=== PATIENT | male | born 1945 | race Caucasian/White ===

== ENCOUNTER 2017-06-21 10:53 | Emergency (ER) | payer OTHER ==
[~2017-06-21] VITALS: Ht 180.3 cm; Wt 95.0 kg
[~2017-06-21 10:53] MED LIST: COUM7.5T PO; DICL75 PO; GABA300C3 PO; GLUCTAB PO; GLYB1TAB51 PO; LANTUS2P SC; LISI-587 PO; PRAV40TA2 PO
[2017-06-21 10:55] VITALS: BP 146/75; PULSE 74; RESP 20; TEMP 98; O2SAT 97
--- NOTE | 2017-06-21 11:11 | PD ---
HPI Chief Complaint: Hip Injury Time Seen by Provider: 11:09 Travel History International Travel<30 days: No Contact w/Intl Traveler<30days: No Traveled to known affect area: No History of Present Illness HPI Patient comes in complaining of feelings of his right hip is dislocated. Patient states that this occurred shortly prior to arrival. Patient states that he bent his leg feeling a popping sensation in his right hip causes sharp shooting pain in his leg. Pain is worse with standing. Resting improves pain. Denies any trauma. PFSH Past Medical History High Cholesterol: Yes Diabetes: Yes Hypertension: Yes Past Surgical History Genitourinary Surgery: No Social History Alcohol Use: No Tobacco Use: No Substance Use: No Allergies-Medications (Allergen,Severity, Reaction): Uncoded Allergies: NO KNOWN DRUG ALLERGIES (Allergy, 09/11/13) Reported Meds & Prescriptions Reported Meds & Active Scripts Active Reported Tylenol (Acetaminophen) 325 Mg Tab 325 Mg PO Q6H PRN Pravastatin 40 Mg Tab 40 Mg PO DAILY Pravastatin Sodium 40 Mg Tab 40 Mg PO DAILY Lantus Inj (Insulin Glargine) 1,000 Unit/10 Ml Vial 22 Units SQ HS Metformin (Metformin HCl) 500 Mg Tab 500 Mg PO BIDPC With meals Review of Systems Except as stated in HPI: all other systems reviewed are Neg Physical Exam Narrative GENERAL: Well-developed, overly nourished, in no acute distress, and non-ill appearing. SKIN: Focused skin assessment warm and dry. HEAD: Atraumatic. Normocephalic. EYES: Pupils equal and round. EOMI. No scleral icterus. No injection or drainage. ENT: No nasal bleeding or discharge. Mucous membranes pink and moist. NECK: Trachea midline. Supple. No nuclear rigidity. RESPIRATORY: No accessory muscle use. No respiratory distress. MUSCULOSKELETAL: No obvious deformities. No clubbing. No cyanosis. No edema. Decreased range of motion right hip secondary to pain. Neurovascular intact distally. NEUROLOGICAL: Awake and alert. No obvious cranial nerve deficits. Motor grossly within normal limits. Normal speech. PSYCHIATRIC: Appropriate mood and affect; insight and judgment normal. Data Data Last Documented VS Vital Signs Date Time Temp Pulse Resp B/P (MAP) Pulse Ox O2 Delivery O2 Flow Rate FiO2 06/21/17 10:55 98.0 74 20 146/75 (98) 97 Room Air Orders Orders Hip, Uni(Ap&Lat) W Ap Pelvis (06/21/17 ) MDM Medical Decision Making Medical Screen Exam Complete: Yes Emergency Medical Condition: Yes Differential Diagnosis Fracture, dislocation, strain, contusion, other Narrative Course Patient was seen and examined. Initial radiological studies were ordered. Patient was transferred to the medical [facility]. Patient signed out to Dr. Fish, please see her documentation for final diagnosis and disposition. Dillan Mejia Jun 21, 2017 11:11
[2017-06-21] MEDS ORDERED: LANTUS2P SQ (11:19)
[2017-06-21] MEDS ORDERED: METF500T PO (11:19)
[2017-06-21] MEDS ORDERED: PRAV40TA2 PO (11:20)
[2017-06-21] MEDS ORDERED: TYLE325T PO (11:22)
[2017-06-21] MEDS ORDERED: HYDROmorphone HCL PF 1 MG/ML VIAL IVS ONE (12:15)
[2017-06-21] MEDS ORDERED: ETOMIDATE 20 MG/10 ML VIAL IV PUSH ONE (12:15)
[2017-06-21] MEDS ORDERED: SODIUM CHLORIDE 0.9% FLUSH 10 ML FLUSH IVF PRN (12:15)
[2017-06-21] MEDS ORDERED: ONDANSETRON HCL 4 MG/2 ML VIAL IVP ONE (12:15)
[2017-06-21 12:36] LABS: AUTOMATED NEUTROPHIL # 4.6 TH/MM3 (1.8-7.7); BASOPHIL % 0.4 % (0.0-2.0); EOSINOPHIL # 0.2 TH/MM3 (0-0.4); EOSINOPHIL % 3.7 % (0.0-4.0); HEMATOCRIT 33.9 % (39.0-51.0); HEMO FLAGS DIFF FINAL; LYMPH % 17.2 % (9.0-44.0); LYMPHOCYTE # 1.1 TH/MM3 (1.0-4.8); MEAN CELL VOLUME 83.9 FL (80.0-100.0); MEAN CORPUSCULAR HEMOGLOBIN 28.1 PG (27.0-34.0); MEAN CORPUSCULAR HGB CONC 33.4 % (32.0-36.0); MONO % 7.5 % (0.0-8.0); NEUT % 71.2 % (16.0-70.0); PLATELET COUNT 289 TH/MM3 (150-450); RED BLOOD COUNT 4.04 MIL/MM3 (4.50-5.90); RED CELL DISTRIBUTION WIDTH 14.4 % (11.6-17.2); WHITE BLOOD COUNT 6.5 TH/MM3 (4.0-11.0)
[2017-06-21 12:45] LABS: APTT (PATIENT) 22.1 SEC (24.3-30.1); INTERNATIONAL NORMALIZED RATIO 0.9 RATIO; PROTHROMBIN TIME - PATIENT 10.2 SEC (9.8-11.6)
[2017-06-21 13:03] LABS: ALT (GPT) 23 U/L (12-78); ANION GAP 9 MEQ/L (5-15); AST (GOT) 11 U/L (15-37); BICARBONATE 26.5 MEQ/L (21.0-32.0); BLOOD UREA NITROGEN 19 MG/DL (7-18); CHLORIDE 94 MEQ/L (98-107); GLOMERULAR FILTRATION RATE 73 ML/MIN (>89); POTASSIUM 4.5 MEQ/L (3.5-5.1); SODIUM (NA) 129 MEQ/L (136-145)
[2017-06-21 13:06] LABS: ALKALINE PHOSPHATASE 84 U/L (45-117); TOTAL BILIRUBIN ADULT 0.3 MG/DL (0.2-1.0)
[2017-06-21 13:13] VITALS: BP 158/71; PULSE 76; RESP 21; O2SAT 94
[2017-06-21 14:07] VITALS: O2SAT 100
--- NOTE | 2017-06-21 14:38 | PD ---
Physical Exam Date Seen by Provider: Jun 21, 2017 Time Seen by Provider: 13:45 Narrative I, Dr. Fish, have reviewed the advance practice practitioner's documentation and am in agreement, met with the patient face to face, made the diagnosis, and the medical decision making was done by me. *My assessment and Findings: Patient seen and evaluated with PA, please see PA note for further details. Has history of right hip replacement, was bending down to put on his sock when he felt dislocation and pain at the right hip. He denies any other issues or injuries. GENERAL: Pleasant well-developed elderly white male patient currently mild distress. Awake and oriented 3. SKIN: Focused skin assessment warm/dry. HEAD: Atraumatic. Normocephalic. EYES: Pupils equal and round. No scleral icterus. No injection or drainage. ENT: No nasal bleeding or discharge. Mucous membranes pink and moist. NECK: Trachea midline. No JVD. CARDIOVASCULAR: Regular rate and rhythm. No murmur appreciated. RESPIRATORY: No accessory muscle use. Clear to auscultation. Breath sounds equal bilaterally. GASTROINTESTINAL: Abdomen soft, non-tender, nondistended. Hepatic and splenic margins not palpable. Pelvis: Stable, tender to palpation of the right hip and decreased range of motion secondary to pain. MUSCULOSKELETAL: No obvious deformities. No clubbing. No cyanosis. No edema. NEUROLOGICAL: Awake and alert. No obvious cranial nerve deficits. Motor grossly within normal limits. Normal speech. PSYCHIATRIC: Appropriate mood and affect; insight and judgment normal. Data Data Last Documented VS Vital Signs Date Time Temp Pulse Resp B/P (MAP) Pulse Ox O2 Delivery O2 Flow Rate FiO2 06/21/17 14:07 100 06/21/17 14:07 3.00 06/21/17 13:13 76 21 158/71 (100) Room Air 06/21/17 10:55 98.0 Orders Orders Hip, Uni(Ap&Lat) W Ap Pelvis (06/21/17 ) Complete Blood Count With Diff (06/21/17 12:08) Comprehensive Metabolic Panel (06/21/17 12:08) Prothrombin Time / Inr (Pt) (06/21/17 12:08) Act Partial Throm Time (Ptt) (06/21/17 12:08) Iv Access Insert/Monitor (06/21/17 12:08) Oximetry (06/21/17 12:08) Ecg Monitoring (06/21/17 12:08) Ondansetron Inj (Zofran Inj) (06/21/17 12:15) Sodium Chloride 0.9% Flush (Ns Flush) (06/21/17 12:15) Hydromorphone Pf Inj (Dilaudid Pf Inj) (06/21/17 12:15) Etomidate Inj (Amidate Inj) (06/21/17 12:15) Hip, Uni(Ap&Lat) Wo Ap Pelvis (06/21/17 14:13) Immobilizer Knee 20 Inch (06/21/17 ) Labs Laboratory Tests Test 06/21/17 12:10 White Blood Count 6.5 TH/MM3 Red Blood Count 4.04 MIL/MM3 Hemoglobin 11.3 GM/DL Hematocrit 33.9 % Mean Corpuscular Volume 83.9 FL Mean Corpuscular Hemoglobin 28.1 PG Mean Corpuscular Hemoglobin Concent 33.4 % Red Cell Distribution Width 14.4 % Platelet Count 289 TH/MM3 Mean Platelet Volume 6.8 FL Neutrophils (%) (Auto) 71.2 % Lymphocytes (%) (Auto) 17.2 % Monocytes (%) (Auto) 7.5 % Eosinophils (%) (Auto) 3.7 % Basophils (%) (Auto) 0.4 % Neutrophils # (Auto) 4.6 TH/MM3 Lymphocytes # (Auto) 1.1 TH/MM3 Monocytes # (Auto) 0.5 TH/MM3 Eosinophils # (Auto) 0.2 TH/MM3 Basophils # (Auto) 0.0 TH/MM3 CBC Comment DIFF FINAL Differential Comment Prothrombin Time 10.2 SEC Prothromb Time International Ratio 0.9 RATIO Activated Partial Thromboplast Time 22.1 SEC Blood Urea Nitrogen 19 MG/DL Creatinine 1.01 MG/DL Random Glucose 196 MG/DL Total Protein 7.0 GM/DL Albumin 4.3 GM/DL Calcium Level 8.8 MG/DL Alkaline Phosphatase 84 U/L Aspartate Amino Transf (AST/SGOT) 11 U/L Alanine Aminotransferase (ALT/SGPT) 23 U/L Total Bilirubin 0.3 MG/DL Sodium Level 129 MEQ/L Potassium Level 4.5 MEQ/L Chloride Level 94 MEQ/L Carbon Dioxide Level 26.5 MEQ/L Anion Gap 9 MEQ/L Estimat Glomerular Filtration Rate 73 ML/MIN [facility] Medical Record Reviewed: Yes Supervised Visit with LILIANA: Yes Narrative Course X-ray reveals right hip dislocation. Patient's hip was reduced under conscious sedation by me. Repeat x-ray was done which shows good alignment. However, it was noted that the greater trochanter and lesser trochanter may be fractured. This issue was discussed with Dr. Mathis and PA who took a look at the x-rays and feel that this is an old fracture, not related to current injury and that the patient can be released with follow-up to his orthopedics doctor and can bear weight without issues with a leg immobilizer and posterior hip precautions. Patient was observed until completely awake and released to follow -up with orthopedics. Return for any new issues as needed. The plan has discussed with him and he states understanding. Procedures Procedure Narrative After the risks and benefits were discussed the following procedure was performed: MODERATE SEDATION: The patient was placed on a ham rolling machine operator and pulse oximetry. An ambu bag and suction was immediately available at bedside. The patient was monitored by the nurse. Oxygen saturation, heart rate and blood pressure were monitored. Procedural sedation was acheived using 20 mg of etomidate. The patient was observed until awake and alert. Procedural Sedation time in attendance was 15 minutes. Right hip was reduced using the Captain Mariusz technique, hip had smooth flexion and extension and leg length was evaluated, pulses were present and equal after procedure. Patient tolerated procedure well. Postprocedural x-ray was done to evaluate alignment. Diagnosis Primary Impression: Hip dislocation, right Disposition: 01 DISCHARGE HOME Condition: Stable Massile Fish MD Jun 21, 2017 14:38
--- NOTE | 2017-06-21 14:47 | RADRPT ---
EXAM DATE/TIME: 06/21/2017 11:53 [facility] COMPARISON: No previous studies available for comparison. INDICATIONS : Hip pain from twisting. HX: revision total hip one month ago. MEDICAL HISTORY : Bilateral total hips SURGICAL HISTORY : Bilateral total hips ENCOUNTER: Initial ACUITY: 1 day PAIN SCORE: 10/10 LOCATION: Right hip. FINDINGS: Pelvis and dedicated view right hip demonstrate the femoral head on the right is disloc ated superiorly. There is a fracture of the greater trochanter. There is a long stem femoral compon ent. We do not see the distal part of the stem. There is extensive cystic change in the left acetabulum. The visualized sacrum is intact. CONCLUSION: Hip arthroplasty dislocated on the right with a questionable fracture of the greater trochanter. There may be an additional fracture of the lesser trochanter as well. The tip of the ar throplasty stem is not included. Alber Casarez MD on June 21, 2017 at 13:31 Board Certified Radiologist. This report was verified electronically.
--- NOTE | 2017-06-21 15:31 | RADRPT ---
EXAM DATE/TIME: 06/21/2017 14:26 [facility] COMPARISON: HIP RIGHT (AP&LAT 2/3VWS) W AP PELVIS, June 21, 2017, 11:53. INDICATIONS : Post reduction. MEDICAL HISTORY : Bilateral total hips. SURGICAL HISTORY : Bilateral total hips ENCOUNTER: Initial ACUITY: 1 day PAIN SCORE: 0/10 LOCATION: Right hip FINDINGS: There has been reduction of the femoral component of the right hip replacement which appears to be in good position. Erosive changes and extensive lucency surrounds the proximal portion of the femoral component. Fractures of the greater and lesser trochanters are likely. CONCLUSION: 1. Successful reduction of right hip dislocation with femoral component in good position in relation to the acetabular component. 2. Extensive erosive changes and lucency surrounding the femoral component with fractures involving t he lesser and greater trochanters of the right proximal femur. Dieter Lindsey MD on June 21, 2017 at 15:20 Board Certified Radiologist. This report was verified electronically.
== END 2017-06-21 16:47 | disposition home or self-care (01) ==
LOC: NEPE 10:53
DX: S73.004A Unspecified dislocation of right hip, initial encounter (principal); T84.020A Dislocation of internal right hip prosthesis, initial encounter; X50.1XXA Overexertion from prolonged static or awkward postures, initial encounter; Y92.009 Unspecified place in unspecified non-institutional (private) residence as the place of occurrence of the external cause; I10 Essential (primary) hypertension; E78.00 Pure hypercholesterolemia, unspecified; E11.9 Type 2 diabetes mellitus without complications; Z79.4 Long term (current) use of insulin
CPT/HCPCS: 27250; 73502; 80053; 85025; 85610; 85730; 96374; 96375; 99152; 99285; J1170; J2405; L1830

== ENCOUNTER 2017-06-22 08:21 | Inpatient (IN) | payer OTHER, MEDICARE ==
[~2017-06-22] VITALS: Ht 177.8 cm; Wt 89.7 kg
[2017-06-22] VITALS (13 sets, daily range): BP systolic 131–189; BP diastolic 67–83; PULSE 70–79; RESP 16–18; TEMP 96.8–98; O2SAT 97–100
[~2017-06-22 08:21] MED LIST changes: -COUM7.5T PO; -DICL75 PO; -GABA300C3 PO; -GLUCTAB PO; -GLYB1TAB51 PO; -LANTUS2P SC; +LANTUS2P SQ; -LISI-587 PO; +METF500T PO; +TYLE325T PO
[2017-06-22] MEDS ORDERED: SODIUM CHLOR 0.9% 1000 ML INJ 1,000 ML IV SCH (08:30)
[2017-06-22] MEDS ORDERED: PROPOFOL 200 MG/20 ML AMP IV ONE ×2 (08:30→10:15)
[2017-06-22] MEDS ORDERED: ONDANSETRON HCL 4 MG/2 ML VIAL IV PUSH ONE ×2 (08:30→12:00)
[2017-06-22] MEDS ORDERED: MORPHINE SULFATE 4 MG/ML INJ IV PUSH ONE ×2 (08:30→12:00)
--- NOTE | 2017-06-22 08:34 | PD ---
HPI Chief Complaint: hip pain Time Seen by Provider: 08:25 Travel History International Travel<30 days: No Contact w/Intl Traveler<30days: No Traveled to known affect area: No History of Present Illness HPI The patient is a 71-year-old male who presents to the emergency department via EMS for right hip pain. The patient states he had right hip surgery performed 2 months ago by his orthopedist, Dr. Gillis, in [place], [place]. The patient states he was seen in emergency department yesterday for right hip dislocation, had his hip reduced and was sent home in a knee immobilizer. The patient was doing well until he took the knee immobilizer off to use the restroom and then subsequently dislocated the right hip once again. He does complain of chronic numbness and tingling to lower cherries bilateral secondary to diabetes, but denies any acute numbness or tingling. He does state the pain is worse with movement, and alleviated at rest with this right hip flexed with a pillow underlying the right leg. He denies any head injury, neck pain, chest pain, shortness breath, nausea, vomiting, or abdominal pain. PFSH Past Medical History High Cholesterol: Yes Diabetes: Yes Hypertension: Yes Past Surgical History Genitourinary Surgery: No Other Surgery: Yes Social History Alcohol Use: No Tobacco Use: No Substance Use: No Allergies-Medications (Allergen,Severity, Reaction): Uncoded Allergies: NO KNOWN DRUG ALLERGIES (Allergy, 09/11/13) Reported Meds & Prescriptions Reported Meds & Active Scripts Active Reported Pravastatin 40 Mg Tab 40 Mg PO DAILY Lantus Inj (Insulin Glargine) 1,000 Unit/10 Ml Vial 22 Units SQ HS Metformin (Metformin HCl) 500 Mg Tab 500 Mg PO BIDPC With meals Review of Systems Except as stated in HPI: all other systems reviewed are Neg HENT: No: Headaches, Neck Pain Cardiovascular: No: Chest Pain or Discomfort Respiratory: No: Shortness of Breath Gastrointestinal: No: Nausea, Vomiting, Abdominal Pain Musculoskeletal: Positive: Limited ROM, Pain Neurologic: Positive: Sensory Disturbance (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 SKIN: Focused skin assessment warm/dry. HEAD: Atraumatic. Normocephalic. EYES: Pupils equal and round. No scleral icterus. No injection or drainage. NECK: Trachea midline. No JVD. CARDIOVASCULAR: Regular rate and rhythm. No murmur appreciated. RESPIRATORY: No accessory muscle use. Clear to auscultation. Breath sounds equal bilaterally. GASTROINTESTINAL: Abdomen soft, non-tender, nondistended. MUSCULOSKELETAL: The right hip is flexed, slightly externally rotated. Positive right dorsalis pedal pulse. Patient is able to move all 5 toes of the right foot. NEUROLOGICAL: Awake and alert. No obvious cranial nerve deficits. Motor grossly within normal limits. Normal speech. Sensation is intact to lateral, medial, dorsal aspect of the right foot. PSYCHIATRIC: Appropriate mood and affect; insight and judgment normal. Data Data Last Documented VS Vital Signs Date Time Temp Pulse Resp B/P (MAP) Pulse Ox O2 Delivery O2 Flow Rate FiO2 06/22/17 15:51 98.0 71 16 148/67 (94) 100 Room Air Orders Orders Morphine Inj (Morphine Inj) (06/22/17 08:30) Ondansetron Inj (Zofran Inj) (06/22/17 08:30) Propofol 200 Mg/20 Ml Inj (Diprivan 200 (06/22/17 08:30) Sodium Chlor 0.9% 1000 Ml Inj (Ns 1000 M (06/22/17 08:30) Hip, Uni(Ap&Lat) Wo Ap Pelvis (06/22/17 ) Hip, Ap Only Wo Ap Pelvis (06/22/17 ) Propofol 200 Mg/20 Ml Inj (Diprivan 200 (06/22/17 10:15) Hip, Ap Only Wo Ap Pelvis (06/22/17 ) Ct Hip W/O Contrast (06/22/17 ) Immobilizer Knee 20 Inch (06/22/17 ) NPO (06/22/17 11:31) Morphine Inj (Morphine Inj) (06/22/17 12:00) Ondansetron Inj (Zofran Inj) (06/22/17 12:00) Hydromorphone Pf Inj (Dilaudid Pf Inj) (06/22/17 13:45) Complete Blood Count With Diff (06/22/17 16:55) Basic Metabolic Panel (Bmp) (06/22/17 16:55) Act Partial Throm Time (Ptt) (06/22/17 16:55) Prothrombin Time / Inr (Pt) (06/22/17 16:55) Electrocardiogram (06/22/17 ) Admit To Inpatient (06/22/17 ) Vital Signs (Adult) Q4H (06/22/17 17:01) Activity Bed Rest (06/22/17 17:01) Sodium Chlor 0.9% 1000 Ml Inj (Ns 1000 M (06/22/17 17:01) Sodium Chloride 0.9% Flush (Ns Flush) (06/22/17 17:15) Sodium Chloride 0.9% Flush (Ns Flush) (06/22/17 21:00) Ondansetron Inj (Zofran Inj) (06/22/17 17:15) Comprehensive Metabolic Panel (06/23/17 06:00) Complete Blood Count With Diff (06/23/17 06:00) Enoxaparin Inj (Lovenox Inj) (06/22/17 17:15) Scd Bilateral/Knee High GURMEET.BID (06/22/17 17:01) Acetamin-Hydrocod 325-5 Mg ([place] 5-325 (06/22/17 17:15) Acetamin-Hydrocod 325-10 Mg ([place] 10-32 (06/22/17 17:15) Naloxone Inj (Narcan Inj) (06/22/17 17:15) Docusate Sodium-Senna (Kiki-Colace) (06/22/17 21:00) Inpatient Certification (06/22/17 ) Npo After Midnight W/ Po Meds (06/23/17 Breakfast) Admit Order (Ed Use Only) (06/22/17 17:00) Consult Orthopedic (06/22/17 ) (Hub Use Only)Inp Phy Cons/Ref (06/22/17 ) Diet Heart Healthy (06/22/17 Dinner) Heparin Inj (Heparin Inj) (06/22/17 21:00) Pravastatin (Pravachol) (06/23/17 09:00) Insulin Detemir Inj (Levemir Inj) (06/22/17 21:00) Bedside Glucose GURMEET.CSUGAR (06/22/17 17:27) Blood Glucose Goal (Criteria) (06/22/17 17:27) Hypoglycemia 70 Mg/Dl Or < (06/22/17 17:27) Notify Dr: Other (06/22/17 17:27) Dextrose 50% In Amisha (Vial) Inj (D50w (Vi (06/22/17 17:30) Glucagon Inj (Glucagon Inj) (06/22/17 17:30) Insulin Aspart Supplemtl Scale (Novolog (06/22/17 21:00) Primidone (Mysoline) (06/23/17 09:00) Labs Laboratory Tests Test 06/22/17 17:20 [facility] Medical Decision Making Medical Screen Exam Complete: Yes Emergency Medical Condition: Yes Medical Record Reviewed: Yes Interpretation(s) X-ray #1 of the right hip reveals superior dislocation of the unipolar total arthroplasty. There is osteophyte ptosis above the greater trochanter. Last Impressions Lower Extremity CT 06/22/17 0000 Signed Impressions: Service Date/Time: Thursday, June 22, 2017 11:12 - CONCLUSION: Dislocation as above. Dain Khan MD FACR Hip X-Ray 06/22/17 0000 Signed Impressions: Service Date/Time: Thursday, June 22, 2017 09:56 - CONCLUSION: Hip remains dislocated. Dain Khan MD FACR Hip X-Ray 06/22/17 0000 Signed Impressions: Service Date/Time: Thursday, June 22, 2017 09:21 - CONCLUSION: Dislocation as described above. Dain Khan MD FACR EKG reveals normal sinus rhythm with occasional supraventricular premature complexes. No ischemic changes noted. Differential Diagnosis Differential diagnosis includes right hip dislocation, right hip fracture, pelvic fracture, femur fracture, strain, sprain. Narrative Course IV was established, the patient was placed on cardiac telemetry monitoring and continuous pulse oximetry monitoring. The patient was administered morphine 4 mg intravenously, Zofran 4 mg intravenously, placed on maintenance IV fluids. X -ray the right hip was obtained. X-ray reveals a dislocated right hip. The patient was administeed propofol with respiratory therapy at bedside on end- tidal CO2 and O2 with proof technician and nursing staff at bedside. The patient was administered propofol 100 mg intravenously and reduction right hip was performed, there was an audible clunk, however, postreduction x-ray reveals that it was still posteriorly and superiorly dislocated. Therefore, patient was administered a second dose of propofol for reduction of the right hip dislocation. After the second attempt was another audible clunk, however, postreduction x-ray was reveals that the hip is still dislocated. Therefore, the on-call orthopedic surgeon was paged at 10:[address] An recommended a CT of the hip to evaluate if there was any entrapment. There is no visible entrapment. Multiple calls were placed back to the on- call orthopedic surgeon, Dr. An. 2 previous attempts at sedation were performed with propofol to the point where the patient had to be bagged via bag valve mask, therefore, third attempt was not attempted without orthopedics at bedside. I would have attempted a third reduction with conscious sedation if worse though would be at bedside and I could manage airway alone. Therefore, at 5 PM a call was placed to the medicine team, for 23 hour observation, patient will be kept nothing by mouth. I discussed the patient with Dr. An at 5:20 PM who states he will take the patient to the operating room in the morning as the patient may have soft tissue that is obstructing placement upon reduction. The patient was ordered a meal/diet, an order for nothing by mouth after midnight was placed. Procedures Procedure Narrative After the risks and benefits were discussed the following procedure was performed: MODERATE SEDATION: The patient was placed on a quality assurance monitor and pulse oximetry. An ambu bag and suction was immediately available at bedside. The patient was monitored by the nurse. Oxygen saturation, heart rate and blood pressure were monitored. Procedural sedation was acheived using propofol. The patient was observed until awake and alert. Procedural Sedation time in attendance was 35 minutes. Physician Communication Physician Communication A call was placed to [facility] for 23 hour observation. I discussed the patient with Dr. Lugo who agrees with 23 hour observation. Diagnosis Primary Impression: Recurrent dislocation, right hip Admitting Information Admitting Physician Requests: Observation Patient Instructions: General Instructions Condition: Stable Bharat Enriquez MD Jun 22, 2017 08:34
--- NOTE | 2017-06-22 09:45 | RADRPT ---
EXAM DATE/TIME: 06/22/2017 09:21 [facility] COMPARISON: HIP RIGHT (AP&LAT 2/3VWS) W AP PELVIS, June 21, 2017, 11:53. HIP RIGHT (AP&LAT 2/3VWS) WO AP PE LVIS, June 21, 2017, 14:26. INDICATIONS : Right hip pain while adjusting in chair. MEDICAL HISTORY : None. SURGICAL HISTORY : Rt hip surgery 2 months ago. Dislocation 06/21/17. Hx of lt hip surgery. ENCOUNTER: Initial ACUITY: 2 days PAIN SCORE: 10/10 LOCATION: Right Hip. FINDINGS: Superior dislocation of the unipolar total arthroplasty. There is osteophytosis about the greater tr ochanter. CONCLUSION: Dislocation as described above. Dain Khan MD FACR on June 22, 2017 at 9:43 Board Certified Radiologist. This report was verified electronically.
--- NOTE | 2017-06-22 10:14 | RADRPT ---
EXAM DATE/TIME: 06/22/2017 09:56 [facility] COMPARISON: No previous studies available for comparison. INDICATIONS : Post reduction right hip. MEDICAL HISTORY : Total right and left hips. SURGICAL HISTORY : Total right and left hips ENCOUNTER: Subsequent ACUITY: 2 days PAIN SCORE: 9/10 LOCATION: Right hip. CONCLUSION: Hip remains dislocated. Dain Khan MD FACR on June 22, 2017 at 10:12 Board Certified Radiologist. This report was verified electronically.
--- NOTE | 2017-06-22 10:57 | RADRPT ---
EXAM DATE/TIME: 06/22/2017 10:21 [facility] COMPARISON: HIP RIGHT AP ONLY WO AP PELVIS, June 22, 2017, 9:56. INDICATIONS : Post reduction 2nd attempt. MEDICAL HISTORY : None. ENCOUNTER: Subsequent ACUITY: 1 day PAIN SCORE: 6/10 LOCATION: Right hip FINDINGS: Hip remains dislocated. Dain Khan MD FACR on June 22, 2017 at 10:55 Board Certified Radiologist. This report was verified electronically.
--- NOTE | 2017-06-22 11:44 | RADRPT ---
EXAM DATE/TIME: 06/22/2017 11:12 [facility] COMPARISON: No previous studies available for comparison. INDICATIONS : Right hip dislocation. RADIATION DOSE: 60.11 CTDIvol (mGy) MEDICAL HISTORY : Hypertension. SURGICAL HISTORY : hip ENCOUNTER: Initial ACUITY: 1 day PAIN SCALE: 10/10 LOCATION: Right hip TECHNIQUE: Volumetric scanning of the hip was performed. Using automated exposure control and adjustment of the mA and/or kV according to patient size, radiation dose was kept as low as reasonably achievable to o btain optimal diagnostic quality images. DICOM format image data is available electronically for rev iew and comparison. FINDINGS: Extensive artifact is present because of the acetabular cup. Osteolysis in the greater trochanteric region. I don't see an etiology for why this will not relocate. CONCLUSION: Dislocation as above. Dain Khan MD FACR on June 22, 2017 at 11:30 Board Certified Radiologist. This report was verified electronically.
[2017-06-22] MEDS ORDERED: HYDROmorphone HCL PF 1 MG/ML VIAL IV PUSH ONE ×2 (13:45→17:45)
[2017-06-22] MEDS: SODIUM CHLOR 0.9% 1000 ML INJ 1,000 ML IV SCH (17:01)
[2017-06-22] MEDS ORDERED: ENOXAPARIN SODIUM 40 MG/0.4 ML SYRINGE SQ SCH (17:15)
[2017-06-22] MEDS ORDERED: ACETAMINOPHEN/HYDROcodone 325 MG/5 MG TAB PO PRN (17:15)
[2017-06-22] MEDS ORDERED: SODIUM CHLORIDE 0.9% FLUSH 10 ML FLUSH IV FLUSH PRN (17:15)
[2017-06-22] MEDS ORDERED: NALOXONE HCL 0.4 MG/ML AMP IV PUSH PRN (17:15)
[2017-06-22] MEDS ORDERED: ONDANSETRON HCL 4 MG/2 ML VIAL IVP PRN (17:15)
--- NOTE | 2017-06-22 17:17 | HHI.HP ---
[facility] Service [place] [facility] Primary Care Physician Unknown Admission Diagnosis recurrent right hip dislocation Diagnoses: Chief Complaint: Hip dislocation Travel History International Travel<30 Days: No Contact w/Intl Traveler <30 Da: No Traveled to Known Affected Are: No History of Present Illness Written by Louis Higginbotham, acting as scribe for Dr. Lugo on 06/22/17 at 17:16. 71-year-old male with a past medical history of HLD, HTN, essential tremor who presented for hip dislocation. The patient had a second right hip replacement done 2 months ago in [place]. He states that yesterday he was bending down to put his socks on, felt a pop, had excruciating pain in his right hip when he tried to bear weight on it. He came to the ED and they were able to sedate him and reduce the dislocation. He states today the same situation happened again when he bent over and felt his hip dislocate again. The hip was unable to be reduced with sedation in the ED. Patient was admitted for orthopedic consultation to reduce persistent hip dislocation. The patient states the pain was not relieved much with morphine but pain was well controlled with Dilaudid. He denies any decreased sensation in his leg. Review of Systems Except as stated in HPI: all other systems reviewed are Neg Past Family Social History Past Medical History Hyperlipidemia Diabetes mellitus Essential tremor Bilateral hip osteoarthritis Past Surgical History Right hip replacement 2 Left hip replacement 1 Reported Medications Reported Meds & Active Scripts Active Reported Pravastatin 40 Mg Tab 40 Mg PO DAILY Lantus Inj (Insulin Glargine) 1,000 Unit/10 Ml Vial 22 Units SQ HS Metformin (Metformin HCl) 500 Mg Tab 500 Mg PO BIDPC With meals Primidone 350 mg Allergies: Uncoded Allergies: NO KNOWN DRUG ALLERGIES (Allergy, 09/11/13) Active Ordered Medications Current Medications Medications (Trade) Dose Ordered Sig/Getachew Route Start Time Stop Time Status Last Admin Sodium Chloride 1,000 ml @ 100 mls/hr Q10H IV 06/22/17 08:30 06/22/17 08:39 Sodium Chloride 1,000 ml @ 83 mls/hr Q12H3M IV 06/22/17 17:01 UNV (NS Flush) 2 ml UNSCH PRN IV FLUSH 06/22/17 17:15 UNV (NS Flush) 2 ml BID IV FLUSH 06/22/17 21:00 UNV (Zofran Inj) 4 mg Q6H PRN IVP 06/22/17 17:15 UNV (Lovenox Inj) 40 mg Q24H SQ 06/22/17 17:15 UNV ([place] 5-325 Mg) 1 tab Q4H PRN PO 06/22/17 17:15 UNV ([place] 10-325 Mg) 1 tab Q4H PRN PO 06/22/17 17:15 UNV (Narcan Inj) 0.4 mg UNSCH PRN IV PUSH 06/22/17 17:15 UNV (Kiki-Colace) 1 tab BID PO 06/22/17 21:00 UNV Family History Patient's parents abuse tobacco and alcohol, denies any known orthopedic problems Social History Former history of heavy alcohol use, no alcohol use currently Denies any tobacco use Physical Exam Vital Signs Vital Signs Date Time Temp Pulse Resp B/P (MAP) Pulse Ox O2 Delivery O2 Flow Rate FiO2 06/22/17 15:51 98.0 71 16 148/67 (94) 100 Room Air 06/22/17 14:14 17 06/22/17 12:56 97.9 74 17 143/81 (101) 100 Room Air 06/22/17 12:00 17 06/22/17 11:28 97.8 72 17 157/83 (107) 100 Room Air 06/22/17 10:50 78 17 131/75 (93) 100 Room Air 06/22/17 10:37 97.9 72 17 144/67 (92) 100 Room Air 06/22/17 10:20 100 06/22/17 10:08 97.8 70 18 155/72 (99) 100 Room Air 06/22/17 09:50 100 06/22/17 09:50 100 06/22/17 09:20 99 06/22/17 08:44 17 06/22/17 08:36 76 17 06/22/17 08:28 97.8 74 17 189/81 (117) 99 Physical Exam GENERAL: Well-developed well-nourished. In no acute distress. SKIN: Warm and dry. No lesions noted. HEENT: Normocephalic. Pupils equal and round. Mucous membranes pink and moist. CARDIOVASCULAR: Regular rate and rhythm. No murmur appreciated. RESPIRATORY: No accessory muscle use. Clear to auscultation. Breath sounds equal bilaterally. GASTROINTESTINAL: Abdomen soft, non-tender, nondistended. Bowel sounds x4. MUSCULOSKELETAL: Right lower extremity shortened and externally rotated. No clubbing or cyanosis. No edema. NEUROLOGICAL: Awake and alert. No focal neurological deficits. Moves upper and lower extremities spontaneously. Normal speech. PSYCHIATRIC: Appropriate mood and affect; insight and judgment normal. Imaging Last Impressions Lower Extremity CT 06/22/17 0000 Signed Impressions: Service Date/Time: Thursday, June 22, 2017 11:12 - CONCLUSION: Dislocation as above. Dain Khan MD FACR Hip X-Ray 06/22/17 0000 Signed Impressions: Service Date/Time: Thursday, June 22, 2017 09:56 - CONCLUSION: Hip remains dislocated. Dain Khan MD FACR Caprini VTE Risk Assessment Caprini VTE Risk Assessment: Mod/High Risk (score >= 2) Caprini Risk Assessment Model Point Value = 1 Point Value = 2 Point Value = 3 Point Value = 5 Age 41-60 Minor surgery BMI > 25 kg/m2 Swollen legs Varicose veins or History of unexplained or recurrent spontaneous Oral contraceptives or hormone replacement Sepsis (< 1 month) Serious lung disease, including pneumonia (< 1 month) Abnormal pulmonary function Acute myocardial infarction Congestive heart failure (< 1 month) History of inflammatory bowel disease Medical patient at bed rest Age 61-74 Arthroscopic surgery Major open surgery (> 45 min) Laparoscopic surgery (> 45 min) Malignancy Confined to bed (> 72 hours) Immobilizing plaster cast Central venous access Age >= 75 History of VTE Family history of VTE Factor V Leiden Prothrombin [id number] Lupus anticoagulant Anticardiolipin antibodies Elevated serum homocysteine Heparin-induced thrombocytopenia Other congenital or acquired thrombophilia Stroke (< 1 month) Elective arthroplasty Hip, pelvis, or leg fracture Acute spinal cord injury (< 1 month) Prophylaxis Regimen Total Risk Factor Score Risk Level Prophylaxis Regimen 0-1 Low Early ambulation 2 Moderate Order ONE of the following: *Sequential Compression Device (SCD) *Heparin 5000 units SQ BID 3-4 Higher Order ONE of the following medications: *Heparin 5000 units SQ TID *Enoxaparin/Lovenox 40 mg SQ daily (WT < 150 kg, CrCl > 30 mL/min) *Enoxaparin/Lovenox 30 mg SQ daily (WT < 150 kg, CrCl > 10-29 mL/min) *Enoxaparin/Lovenox 30 mg SQ BID (WT < 150 kg, CrCl > 30 mL/min) AND/OR *Sequential Compression Device (SCD) 5 or more Highest Order ONE of the following medications: *Heparin 5000 units SQ TID (Preferred with Epidurals) *Enoxaparin/Lovenox 40 mg SQ daily (WT < 150 kg, CrCl > 30 mL/min) *Enoxaparin/Lovenox 30 mg SQ daily (WT < 150 kg, CrCl > 10-29 mL/min) *Enoxaparin/Lovenox 30 mg SQ BID (WT < 150 kg, CrCl > 30 mL/min) AND *Sequential Compression Device (SCD) Assessment and Plan Assessment and Plan 71-year-old male with a past medical history of HLD, HTN, essential tremor who presented for hip dislocation Persistent right hip dislocation: Unable to be reduced with sedation in the ED despite multiple attempts, seen on review of imaging done. -Orthopedics consulted, nothing by mouth after midnight -Pain control with [place] -Bedrest for now, further activity per orthopedics Diabetes mellitus: -Hold home metformin -Give half basal insulin tonight -Monitor Accu-Cheks and SSI coverage if needed Essential tremor: Continue primidone Hyperlipidemia: Continue statin DVT prophylaxis: Heparin This note was transcribed by mark [Louis Higginbotham]. I, Dr. Chris Lugo personally performed the history, physical exam, and medical decision making; and confirmed the accuracy of the information in the transcribed note. Authenticated by Dr. Chris Lugo on 06/22/17 at 17:46. Discussed Condition With Patient, ED staff Louis Higginbotham Jun 22, 2017 17:16 Chris Lugo MD Jun 22, 2017 17:47
[2017-06-22] MEDS ORDERED: GLUCAGON 1 MG/ML VIAL OTHER PRN ×2 (17:30→17:45)
[2017-06-22] MEDS ORDERED: DEXTROSE 50% IN WATER 50 ML VIAL(D50) IV PRN ×2 (17:30→17:45)
[2017-06-22 17:53] LABS: AUTOMATED NEUTROPHIL # 4.7 TH/MM3 (1.8-7.7); BASOPHIL % 0.3 % (0.0-2.0); EOSINOPHIL # 0.1 TH/MM3 (0-0.4); EOSINOPHIL % 1.9 % (0.0-4.0); HEMATOCRIT 29.3 % (39.0-51.0); HEMO FLAGS DIFF FINAL; LYMPHOCYTE # 1.4 TH/MM3 (1.0-4.8); MEAN CELL VOLUME 83.7 FL (80.0-100.0); MEAN CORPUSCULAR HEMOGLOBIN 28.6 PG (27.0-34.0); MEAN CORPUSCULAR HGB CONC 34.2 % (32.0-36.0); MONO % 9.4 % (0.0-8.0); NEUT % 68.4 % (16.0-70.0); PLATELET COUNT 235 TH/MM3 (150-450); RED BLOOD COUNT 3.51 MIL/MM3 (4.50-5.90); WHITE BLOOD COUNT 6.9 TH/MM3 (4.0-11.0)
[2017-06-22 17:55] LABS: APTT (PATIENT) 24.9 SEC (24.3-30.1); INTERNATIONAL NORMALIZED RATIO 0.9 RATIO; PROTHROMBIN TIME - PATIENT 10.4 SEC (9.8-11.6)
[2017-06-22 18:06] LABS: BICARBONATE 27.4 MEQ/L (21.0-32.0); POTASSIUM 4.5 MEQ/L (3.5-5.1)
[2017-06-22] MEDS: HEPARIN SODIUM - SQ 10,000 UNITS/ML VIAL SQ SCH (19:38)
[2017-06-22] MEDS: SODIUM CHLORIDE 0.9% FLUSH 10 ML FLUSH IV FLUSH SCH (20:26)
[2017-06-22] MEDS: DOCUSATE SODIUM 50 MG/SENNA 8.6 MG TAB PO SCH (20:26)
--- NOTE | 2017-06-22 20:55 | EKG ---
Date Performed: 06/22/2017 Time Performed: 17:04:42 PTAGE: 71 years EKG: Sinus rhythm WITH OCCASIONAL SUPRAVENTRICULAR PREMATURE COMPLEXES BORDERLINE ECG Compared to prior electrocardiog freda, Premature atrial contractions are present and PVCs are no lonnger present. PREVIOUS TRACING : 09/11/2013 09.35 DOCTOR: Dagoberto Olivares Interpretating Date/Time 06/22/2017 20:53:07
[2017-06-22] MEDS ORDERED: INSULIN ASPART SUPPLEMENTAL SCALE SQ SCH (21:00)
[2017-06-22] MEDS: INSULIN DETEMIR 100 UNITS/ML VIAL SQ SCH (22:10)
[2017-06-22] MEDS: INSULIN ASPART SUPPLEMENTAL SCALE SQ SCH (22:10)
[2017-06-23] MEDS: HYDROmorphone HCL PF 1 MG/ML VIAL IV PUSH PRN ×2 (02:24→06:21)
[2017-06-23 04:00] VITALS: BP 109/59; PULSE 61; RESP 17; TEMP 97.6; O2SAT 98
[2017-06-23] MEDS: SODIUM CHLOR 0.9% 1000 ML INJ 1,000 ML IV SCH ×2 (05:04→18:05)
[2017-06-23] MEDS ORDERED: GENTAMICIN SULFATE 80 MG/2 ML VIAL ONE (06:57)
[2017-06-23] MEDS ORDERED: ceFAZolin 2 GM PREMIX 50 ML ONE (06:57)
[2017-06-23] MEDS ORDERED: VANCOMYCIN HCL 1000 MG VIAL ONE (06:57)
[2017-06-23 07:40] VITALS: BP 115/55; PULSE 69; RESP 18; TEMP 96.9; O2SAT 94
[2017-06-23] MEDS: INSULIN ASPART SUPPLEMENTAL SCALE SQ SCH ×4 (08:00→23:23)
[2017-06-23] MEDS: DOCUSATE SODIUM 50 MG/SENNA 8.6 MG TAB PO SCH ×2 (09:00→21:31)
[2017-06-23] MEDS: HEPARIN SODIUM - SQ 10,000 UNITS/ML VIAL SQ SCH (09:00)
[2017-06-23] MEDS: SODIUM CHLORIDE 0.9% FLUSH 10 ML FLUSH IV FLUSH SCH (09:00)
[2017-06-23] MEDS: PRAVASTATIN SOD 40 MG TAB PO SCH (09:00)
[2017-06-23] MEDS: PRIMIDONE 250 MG TAB PO SCH (09:00)
[2017-06-23] MEDS ORDERED: SODIUM CHLOR 0.9% 1000 ML INJ 1,000 ML IV SCH (10:25)
[2017-06-23] MEDS ORDERED: HYDR-3288 PO (10:27)
[2017-06-23] MEDS ORDERED: ENOX30P SQ (10:28)
[2017-06-23] MEDS ORDERED: ASPI81CH37 CHEW (10:28)
[2017-06-23] MEDS ORDERED: ACETAMINOPHEN/HYDROcodone 325 MG/10 MG TAB PO PRN ×2 (10:30)
[2017-06-23] MEDS ORDERED: MORPHINE SULFATE 4 MG/ML INJ IV PUSH PRN (10:30)
[2017-06-23] MEDS ORDERED: DO NOT ADM ANY ANTICOAGULANT DRUGS PRN (10:35)
[2017-06-23] MEDS ORDERED: *morphine SULFATE 8 MG/ML PERIprocedure ONLY ONE (11:24)
[2017-06-23 11:55] VITALS: BP 144/65; PULSE 65; RESP 18; TEMP 96.7; O2SAT 96
--- NOTE | 2017-06-23 11:58 | MB ---
cc: VINCENZO PUGH M.D. DATE OF CONSULTATION: 06/23/2017. REASON FOR CONSULTATION: Right hip recurrent irreducible dislocation. HISTORY OF PRESENT ILLNESS: This is a 71-year-old male with past history of hypertension and essential tremor. He underwent a right total hip arthroplasty over 15 years and a subsequent revision of the right total hip arthroplasty done at [facility] with Dr. Gillis two months ago. He states the surgery he believes was April 18. Two days ago he was bending over to put his socks on and felt a pop and sustained a dislocation of his hip. He went to [facility] and had a closed reduction. He was discharged home and the following day he was bending again and sustained a second dislocation. He has undergone multiple closed reduction attempts in the emergency room under conscious sedation anesthesia, which were unsuccessful. The hip appeared to be very unstable after reduction. Orthopedic surgery has been consulted for evaluation of this condition. PAST MEDICAL HISTORY: 1. Hyperlipidemia. 2. Diabetes. 3. Tremor. 4. Bilateral total hip arthroplasty. 5. Right total hip arthroplasty revision two months ago. MEDICATIONS: 1. Pravastatin. 2. Insulin. 3. Glucophage. 4. Primidone. ALLERGIES: NO KNOWN DRUG ALLERGIES. REVIEW OF SYSTEMS: A twelve-point review of systems is negative other than the history of present illness. SOCIAL HISTORY: Nonsmoker and non-drinker. He states he did drink heavily in the past but no longer. FAMILY HISTORY: Reviewed and noncontributory. PHYSICAL EXAMINATION: VITAL SIGNS: Temperature 97.8, pulse of 74, respirations 17, blood pressure 180/83. GENERAL: In general, the patient is a well-nourished male lying in bed awake, alert and in no acute distress. HEAD, EYES, EARS, NOSE, THROAT: Normocephalic and atraumatic. Pupils round and reactive to light. Extraocular muscles intact. NECK: The neck is supple. LUNGS: Clear. HEART: Regular rate and rhythm. ABDOMEN: Abdomen soft and nontender. EXTREMITIES: The right hip shows shortening and pain with passive motion. He has a healed incision along the posterolateral aspect. He can flex and extend his ankle and toes distally. X-rays as well as CT scan do show evidence of a right total hip arthroplasty and posterior dislocation. IMPRESSION: A 71-year-old male with an irreducible right total hip arthroplasty revision dislocation. He underwent revision surgery two months ago. PLAN: I discussed the diagnosis with the patient as well as the treatment options including the option of open reduction of his dislocation and possible revision of components to include lengthening of the hip if needed. The risks of surgery were discussed, which include but are not limited to anesthesia, bleeding, infection, damage to nerve or blood vessels, pain, stiffness, recurrent dislocation, blood clots, pulmonary embolism. The patient's pain is severe with any movement of the hip and he is in favor of proceeding with surgical intervention as outlined above. Written consent has been obtained and the surgical site has been marked. MD NAVYA Hayes/ALYCE /9:41 AM /11:46 AM
[2017-06-23] MEDS ORDERED: TRANEXAMIC ACID INJ 900 MG in SODIUM CHLORIDE 0.9% INJ 100 ML IV ONE (12:00)
[2017-06-23] MEDS ORDERED: SODIUM CHLORIDE 0.9% FLUSH 5 ML FLUSH IVF PRN (12:00)
--- NOTE | 2017-06-23 12:19 | RADRPT ---
EXAM DATE/TIME: 06/23/2017 10:50 [facility] COMPARISON: HIP RIGHT (AP&LAT 2/3VWS) WO AP PELVIS, June 22, 2017, 9:21. HIP RIGHT AP ONLY, August 19 13, 14:20. HIP RIGHT AP ONLY WO AP PELVIS, June 22, 2017, 10:21. CT HIP RIGHT W/O CONTRAST, Se ptember 2016, 11:12. HIP RIGHT (AP&LAT 2/3VWS) WO AP PELVIS, June 21, 2017, 14:26. HIP RIG HT (AP&LAT 2/3VWS) W AP PELVIS, June 21, 2017, 11:53. INDICATIONS : Post operative for hip relocation. MEDICAL HISTORY : None. SURGICAL HISTORY : Bilateral hip arthroplasty. ENCOUNTER: Initial ACUITY: 1 day PAIN SCORE: 4/10 LOCATION: Right hip, incision site. FINDINGS: Bilateral hip prostheses are in place. There has been successful reduction of the dislocated femoral component of the right hip prosthesis. There is air in the soft tissues around the right femoral pros thesis. There is a separate fragment involving the right greater trochanter. There is a small metalli c linear density seen adjacent to the proximal aspect of the right femoral prosthetic component. Ther e is a cerclage wire in the proximal right femoral shaft region. There is degenerative change in the lumbar spine. The left hip prosthesis appears normal. CONCLUSION: Successful reduction of the dislocated right femoral component of a total hip prosthesis. There is ai r seen in the right hip joint region. Cristian Matat MD on June 23, 2017 at 12:13 Board Certified Radiologist. This report was verified electronically.
[2017-06-23] MEDS ORDERED: SODIUM CHLOR 0.9% 250 ML INJ 250 ML IV ONE (12:23)
[2017-06-23] MEDS ORDERED: ONDANSETRON HCL 4 MG/2 ML VIAL IV PUSH ONE (12:23)
[2017-06-23] MEDS ORDERED: ePHEDrine/NS 25 MG/5 ML SYR IV ONE (12:23)
[2017-06-23] MEDS ORDERED: MIDAZOLAM HCL 2 MG/2 ML VIAL IV ONE (12:23)
[2017-06-23] MEDS ORDERED: PROPOFOL 200 MG/20 ML AMP IV ONE (12:23)
[2017-06-23] MEDS ORDERED: PHENYLEPH/NS 1000 MCG/10 ML SYR IV ONE (12:23)
[2017-06-23] MEDS ORDERED: NEOSTIGMINE 3 MG/3 ML SYR IV ONE (12:23)
[2017-06-23] MEDS: ACETAMINOPHEN/HYDROcodone 325 MG/10 MG TAB PO PRN ×3 (12:25→21:30)
[2017-06-23] MEDS ORDERED: BISACODYL 10 MG SUPP RECTAL PRN (13:00)
[2017-06-23] MEDS ORDERED: Post-op Orders (for Pharmacy) MISC XX ONE (13:00)
[2017-06-23] MEDS ORDERED: ONDANSETRON HCL 4 MG/2 ML VIAL IVP PRN (13:00)
[2017-06-23 16:00] VITALS: BP 137/67; PULSE 88; RESP 18; TEMP 96.1; O2SAT 100
--- NOTE | 2017-06-23 16:05 | HHI.PR ---
Subjective Remarks Status post dislocation reduction of right hip, open procedure needed. Patient complains of no pain when seen. No nausea or vomiting. Objective Vital Signs Date Time Temp Pulse Resp B/P (MAP) Pulse Ox O2 Delivery O2 Flow Rate FiO2 06/23/17 11:55 96.7 65 18 144/65 (91) 96 06/23/17 11:45 72 18 165/76 (105) 99 Nasal Cannula 2 06/23/17 11:30 74 18 166/79 (108) 99 Nasal Cannula 2 06/23/17 11:15 57 18 138/63 (88) 100 Nasal Cannula 2 06/23/17 11:00 67 18 132/65 (87) 100 Nasal Cannula 2 06/23/17 10:49 97.4 83 18 161/70 (100) 100 Nasal Cannula 2 06/23/17 08:00 97.8 77 16 170/81 (110) 96 06/23/17 07:40 96.9 69 18 115/55 (75) 94 06/23/17 04:00 97.6 61 17 109/59 (76) 98 06/22/17 23:30 97.4 79 16 132/67 (88) 97 06/22/17 18:02 97.8 78 16 140/83 (102) 99 06/22/17 16:40 96.8 74 18 159/73 (101) 97 I/O 06/22/17 06/22/17 06/22/17 06/23/17 06/23/17 06/23/17 07:00 15:00 23:00 07:00 15:00 23:00 Intake Total 1580 ml 0 ml 700 ml Output Total 700 ml 450 ml 550 ml Balance -700 ml 1130 ml -550 ml 700 ml Intake Oral 600 ml 0 ml IV Total 980 ml Other 700 ml Output Urine Total 700 ml 450 ml 550 ml # Voids 1 # Bowel Movements 0 Result Diagram: 06/22/17 1720 06/22/17 1720 Objective Remarks GENERAL: NAD, A&Ox3 HEAD: Normocephalic. NECK: Supple, trachea midline. No lymphadenopathy. EYES: No scleral icterus. No injection or drainage. CARDIOVASCULAR: Regular rate and rhythm without murmurs, gallops, or rubs. RESPIRATORY: Breath sounds equal bilaterally. No accessory muscle use. GASTROINTESTINAL: Abdomen soft, non-tender, nondistended. MUSCULOSKELETAL: No cyanosis, or edema. Right hip bandage. SKIN: Warm and dry. NEURO: No focal neurological deficitis. A/P Problem List: (1) Recurrent dislocation, right hip ICD Code: M24.451 - Recurrent dislocation, right hip Status: Acute (2) Hip dislocation, right ICD Code: S73.004A - Unspecified dislocation of right hip, initial encounter Assessment and Plan Assessment and plan 71-year-old male admitted secondary to right hip dislocation Status post right hip dislocation Status post open right hip reduction PT Orthopedics following Continue as needed pain treatments Monitor functional status Diabetes mellitus type 2 Follow blood sugars Insulin sliding scale Diabetic diet Essential tremor Continue primidone Hyperlipidemia Continue statin Follow as an outpatient DVT prophylaxis Heparin Chris Lugo MD Jun 23, 2017 16:05
[2017-06-23 18:25] VITALS: O2SAT 98
[2017-06-23 20:35] VITALS: BP 136/69; PULSE 83; RESP 18; TEMP 98.1; O2SAT 97
[2017-06-23] MEDS: SODIUM CHLORIDE 0.9% FLUSH 5 ML FLUSH IVF SCH (21:00)
[2017-06-23] MEDS ORDERED: ZOLPIDEM TARTRATE 5 MG TAB PO PRN (21:00)
[2017-06-23] MEDS: INSULIN DETEMIR 100 UNITS/ML VIAL SQ SCH (23:24)
[2017-06-23] MEDS: ENOXAPARIN SODIUM 30 MG/0.3 ML SYRINGE SQ SCH (23:26)
[2017-06-24 00:25] VITALS: BP 117/66; PULSE 63; RESP 18; TEMP 97; O2SAT 100
[2017-06-24 04:17] VITALS: BP 111/55; PULSE 64; RESP 18; TEMP 97.7; O2SAT 98
[2017-06-24] MEDS: SODIUM CHLOR 0.9% 1000 ML INJ 1,000 ML IV SCH ×2 (05:10→17:13)
[2017-06-24] MEDS: ACETAMINOPHEN/HYDROcodone 325 MG/10 MG TAB PO PRN ×3 (06:12→17:33)
--- NOTE | 2017-06-24 08:33 | PD.ORT.PN ---
Subjective Post Op Day #: 1 Subjective Remarks pain under control. Objective Vitals Vital Signs Date Time Temp Pulse Resp B/P (MAP) Pulse Ox O2 Delivery O2 Flow Rate FiO2 06/24/17 04:17 97.7 64 18 111/55 (73) 98 06/24/17 00:25 97.0 63 18 117/66 (83) 100 06/23/17 20:35 98.1 83 18 136/69 (91) 97 06/23/17 18:25 98 21 06/23/17 16:00 96.1 88 18 137/67 (90) 100 06/23/17 11:55 96.7 65 18 144/65 (91) 96 06/23/17 11:45 72 18 165/76 (105) 99 Nasal Cannula 2 06/23/17 11:30 74 18 166/79 (108) 99 Nasal Cannula 2 06/23/17 11:15 57 18 138/63 (88) 100 Nasal Cannula 2 06/23/17 11:00 67 18 132/65 (87) 100 Nasal Cannula 2 06/23/17 10:49 97.4 83 18 161/70 (100) 100 Nasal Cannula 2 I/O 06/23/17 06/23/17 06/23/17 06/24/17 06/24/17 06/24/17 07:00 15:00 23:00 07:00 15:00 23:00 Intake Total 0 ml 700 ml 960 ml 240 ml Output Total 550 ml 1350 ml 550 ml Balance -550 ml 700 ml -390 ml -310 ml Intake Oral 0 ml 960 ml 240 ml Other 700 ml Output Urine Total 550 ml 1350 ml 550 ml # Bowel Movements 0 0 Result Diagram: 06/22/17 1720 06/22/17 1720 Objective Remarks in bed, nad, wedge in place dressing c/d/i neg homans nvi Assessment & Plan Ortho Post Op Day #: 1 Problem List: Assessment and Plan s/p Open Reduction R RIC POD1 hx of R RIC at [facility] wbat - posterior hip precautions must have wedge or knee immobilizer while in bed daily dressing changes lovenox d/c planning home f/up dr. de la paz 2 weeks Alexys Ellington Jun 24, 2017 08:33
[2017-06-24] MEDS: SODIUM CHLORIDE 0.9% FLUSH 5 ML FLUSH IVF SCH ×2 (08:43→21:00)
[2017-06-24] MEDS: DOCUSATE SODIUM 50 MG/SENNA 8.6 MG TAB PO SCH ×2 (08:43→21:30)
[2017-06-24] MEDS: PRAVASTATIN SOD 40 MG TAB PO SCH (08:43)
[2017-06-24] MEDS: PRIMIDONE 250 MG TAB PO SCH (08:43)
[2017-06-24 08:44] VITALS: BP 160/74; PULSE 76; RESP 17; TEMP 98.2; O2SAT 100
[2017-06-24] MEDS: INSULIN ASPART SUPPLEMENTAL SCALE SQ SCH ×4 (10:03→21:35)
[2017-06-24 10:41] LABS: ALKALINE PHOSPHATASE 78 U/L (45-117); ALT (GPT) 20 U/L (12-78); ANION GAP 7 MEQ/L (5-15); AST (GOT) 17 U/L (15-37); BICARBONATE 27.6 MEQ/L (21.0-32.0); CHLORIDE 95 MEQ/L (98-107); GLOMERULAR FILTRATION RATE 116 ML/MIN (>89); POTASSIUM 4.5 MEQ/L (3.5-5.1); SODIUM (NA) 130 MEQ/L (136-145); TOTAL BILIRUBIN ADULT 0.3 MG/DL (0.2-1.0)
[2017-06-24 10:43] LABS: BLOOD UREA NITROGEN 10 MG/DL (7-18)
--- NOTE | 2017-06-24 11:27 | HHI.PR ---
Subjective Remarks Hemoglobin is 10.0 today, postop. Patient has been ambulatory with walker. She has no new complaints today. Objective Vital Signs Date Time Temp Pulse Resp B/P (MAP) Pulse Ox O2 Delivery O2 Flow Rate FiO2 06/24/17 08:44 98.2 76 17 160/74 (102) 100 06/24/17 04:17 97.7 64 18 111/55 (73) 98 06/24/17 00:25 97.0 63 18 117/66 (83) 100 06/23/17 20:35 98.1 83 18 136/69 (91) 97 06/23/17 18:25 98 21 06/23/17 16:00 96.1 88 18 137/67 (90) 100 06/23/17 11:55 96.7 65 18 144/65 (91) 96 06/23/17 11:45 72 18 165/76 (105) 99 Nasal Cannula 2 06/23/17 11:30 74 18 166/79 (108) 99 Nasal Cannula 2 I/O 06/23/17 06/23/17 06/23/17 06/24/17 06/24/17 06/24/17 07:00 15:00 23:00 07:00 15:00 23:00 Intake Total 0 ml 700 ml 960 ml 240 ml Output Total 550 ml 1350 ml 550 ml Balance -550 ml 700 ml -390 ml -310 ml Intake Oral 0 ml 960 ml 240 ml Other 700 ml Output Urine Total 550 ml 1350 ml 550 ml # Bowel Movements 0 0 Result Diagram: 06/22/17 1720 06/24/17 0930 Objective Remarks GENERAL: NAD, A&Ox3 HEAD: Normocephalic. NECK: Supple, trachea midline. No lymphadenopathy. EYES: No scleral icterus. No injection or drainage. CARDIOVASCULAR: Regular rate and rhythm without murmurs, gallops, or rubs. RESPIRATORY: Breath sounds equal bilaterally. No accessory muscle use. GASTROINTESTINAL: Abdomen soft, non-tender, nondistended. MUSCULOSKELETAL: No cyanosis, or edema. Right hip bandage. SKIN: Warm and dry. NEURO: No focal neurological deficitis. A/P Problem List: (1) Recurrent dislocation, right hip ICD Code: M24.451 - Recurrent dislocation, right hip Status: Acute (2) Hip dislocation, right ICD Code: S73.004A - Unspecified dislocation of right hip, initial encounter Assessment and Plan Assessment and plan 71-year-old male admitted secondary to right hip dislocation. Doing well postop. Continue PT. No further monitoring of hemoglobin needed. Status post right hip dislocation Status post open right hip reduction PT Orthopedics following Continue as needed pain treatments Monitor functional status Diabetes mellitus type 2 Follow blood sugars Insulin sliding scale Diabetic diet Essential tremor Continue primidone Hyperlipidemia Continue statin Follow as an outpatient DVT prophylaxis Lovenox Discharge planning Patient plans to discharge to home Chris Lugo MD Jun 24, 2017 11:27
[2017-06-24] MEDS: diphenhydrAMINE HCL 50 MG/ML VIAL IV PRN ×2 (11:51→21:30)
[2017-06-24 13:32] LABS: AUTOMATED NEUTROPHIL # 4.9 TH/MM3 (1.8-7.7); BASOPHIL % 0.4 % (0.0-2.0); EOSINOPHIL # 0.2 TH/MM3 (0-0.4); EOSINOPHIL % 3.3 % (0.0-4.0); HEMATOCRIT 29.2 % (39.0-51.0); HEMO FLAGS DIFF FINAL; LYMPHOCYTE # 1.4 TH/MM3 (1.0-4.8); MEAN CELL VOLUME 83.1 FL (80.0-100.0); MEAN CORPUSCULAR HEMOGLOBIN 28.8 PG (27.0-34.0); MEAN CORPUSCULAR HGB CONC 34.6 % (32.0-36.0); MONO % 8.6 % (0.0-8.0); NEUT % 68.7 % (16.0-70.0); PLATELET COUNT 236 TH/MM3 (150-450); RED BLOOD COUNT 3.51 MIL/MM3 (4.50-5.90); RED CELL DISTRIBUTION WIDTH 14.4 % (11.6-17.2); WHITE BLOOD COUNT 7.2 TH/MM3 (4.0-11.0)
[2017-06-24 16:00] VITALS: BP 141/67; PULSE 86; RESP 18; TEMP 98.4; O2SAT 98
[2017-06-24 20:50] VITALS: BP 117/61; PULSE 72; RESP 18; TEMP 98.3; O2SAT 96
[2017-06-24] MEDS ORDERED: DOCUSATE SODIUM 100 MG CAP PO SCH (21:00)
[2017-06-24] MEDS: MULTIVITAMINS/MINERALS THERAPEUTIC TAB PO SCH (21:30)
[2017-06-24] MEDS: GABAPENTIN 300 MG CAP PO SCH (21:30)
[2017-06-24] MEDS: INSULIN DETEMIR 100 UNITS/ML VIAL SQ SCH (21:35)
[2017-06-24] MEDS: ENOXAPARIN SODIUM 30 MG/0.3 ML SYRINGE SQ SCH (22:36)
[2017-06-25 00:49] VITALS: BP 142/73; PULSE 71; RESP 18; TEMP 98.2; O2SAT 96
[2017-06-25 04:22] VITALS: BP 134/62; PULSE 72; RESP 18; TEMP 97.6; O2SAT 96
[2017-06-25] MEDS: SODIUM CHLOR 0.9% 1000 ML INJ 1,000 ML IV SCH (05:16)
[2017-06-25 08:00] VITALS: BP 142/79; PULSE 77; RESP 18; TEMP 96.5; O2SAT 98
[2017-06-25 08:02] LABS: HEMATOCRIT 29.3 % (39.0-51.0); MEAN CELL VOLUME 83.6 FL (80.0-100.0); MEAN CORPUSCULAR HEMOGLOBIN 29.5 PG (27.0-34.0); MEAN CORPUSCULAR HGB CONC 35.2 % (32.0-36.0); PLATELET COUNT 225 TH/MM3 (150-450); RED BLOOD COUNT 3.51 MIL/MM3 (4.50-5.90); RED CELL DISTRIBUTION WIDTH 14.2 % (11.6-17.2); REVIEW FLAG FINAL; WHITE BLOOD COUNT 5.6 TH/MM3 (4.0-11.0)
[2017-06-25] MEDS ORDERED: PRIMIDONE 250 MG TAB PO SCH (09:00)
[2017-06-25] MEDS: PRIMIDONE 250 MG TAB PO SCH (09:00)
[2017-06-25] MEDS: SODIUM CHLORIDE 0.9% FLUSH 5 ML FLUSH IVF SCH (09:00)
[2017-06-25] MEDS: MULTIVITAMINS/MINERALS THERAPEUTIC TAB PO SCH (09:09)
[2017-06-25] MEDS: GABAPENTIN 300 MG CAP PO SCH (09:09)
[2017-06-25] MEDS: DOCUSATE SODIUM 50 MG/SENNA 8.6 MG TAB PO SCH (09:09)
[2017-06-25] MEDS: PRAVASTATIN SOD 40 MG TAB PO SCH (09:09)
[2017-06-25] MEDS: INSULIN ASPART SUPPLEMENTAL SCALE SQ SCH ×2 (09:10→12:21)
[2017-06-25 12:00] VITALS: BP 136/82; PULSE 78; RESP 18; TEMP 96.8; O2SAT 98
--- NOTE | 2017-06-25 12:09 | HHI.FF ---
Face to Face Verification Diagnosis: (1) Recurrent dislocation, right hip (2) Hip dislocation, right Physical Therapy Order: Evaluate and Treat Occupational Therapy Order: Evaluate and Treat I have seen patient Alber Duncan on 06/25/17. My clinical findings support the need for the requested home health care services because: Ltd mobility - disease progression Deconditioned w/ increased weakness Limited ability to care for self High risk of falls I certify that my clinical findings support that this patient is homebound because: Post-op weakness Unsteady gait/balance Unsafe to leave home unassisted Unable to use public transportation Chris Lugo MD Jun 25, 2017 11:32
--- NOTE | 2017-06-25 12:09 | HHI.DS ---
Discharge Summary Admission Date Jun 22, 2017 at 17:07 Discharge Date: Jun 25, 2017 Admitting Diagnosis recurrent right hip dislocation (1) Recurrent dislocation, right hip ICD Code: M24.451 - Recurrent dislocation, right hip Diagnosis: Principal Status: Acute (2) Hip dislocation, right ICD Code: S73.004A - Unspecified dislocation of right hip, initial encounter Diagnosis: Principal Procedures Open right hip reduction Brief History - From Admission Written by Louis Higginbotham, acting as scribe for Dr. Lugo on 06/22/17 at 17:16. 71-year-old male with a past medical history of HLD, HTN, essential tremor who presented for hip dislocation. The patient had a second right hip replacement done 2 months ago in [place]. He states that yesterday he was bending down to put his socks on, felt a pop, had excruciating pain in his right hip when he tried to bear weight on it. He came to the ED and they were able to sedate him and reduce the dislocation. He states today the same situation happened again when he bent over and felt his hip dislocate again. The hip was unable to be reduced with sedation in the ED. Patient was admitted for orthopedic consultation to reduce persistent hip dislocation. The patient states the pain was not relieved much with morphine but pain was well controlled with Dilaudid. He denies any decreased sensation in his leg. CBC/BMP: 06/25/17 0738 06/24/17 0930 Significant Findings Laboratory Tests Test 06/22/17 17:20 06/24/17 09:30 06/24/17 12:27 06/25/17 07:38 Red Blood Count 3.51 MIL/MM3 (4.50-5.90) 3.51 MIL/MM3 (4.50-5.90) 3.51 MIL/MM3 (4.50-5.90) Hemoglobin 10.0 GM/DL (13.0-17.0) 10.1 GM/DL (13.0-17.0) 10.3 GM/DL (13.0-17.0) Hematocrit 29.3 % (39.0-51.0) 29.2 % (39.0-51.0) 29.3 % (39.0-51.0) Monocytes (%) (Auto) 9.4 % (0.0-8.0) 8.6 % (0.0-8.0) Random Glucose 152 MG/DL (74-106) 139 MG/DL (74-106) Sodium Level 133 MEQ/L (136-145) 130 MEQ/L (136-145) Chloride Level 97 MEQ/L (98-107) 95 MEQ/L (98-107) Total Protein 5.5 GM/DL (6.4-8.2) Albumin 3.3 GM/DL (3.4-5.0) Calcium Level 8.2 MG/DL (8.5-10.1) Hospital Course Mr. Duncan is a 71-year-old male. He was admitted secondary to a right hip dislocation. He had a pretty serious hip replacement here. Due to retained debris in the socket he had to have an open hip reduction with clearance of the debris. He's been doing well postop. Pain is minimal. He is ambulatory. PT and OT recommended. Patient prefers home rather than [facility] facility. Medically stable for discharge to home today. Orthopedics has cleared patient for discharge. Continue PT and OT at home. Pt Condition on Discharge: Stable Discharge Disposition: Disch w/ Home Health Serv Discharge Time: <= 30 minutes Discharge Instructions DIET: Follow Instructions for: As Tolerated, No Restrictions Activities you can perform: Regular-No Restrictions Follow up Referrals: Orthopedics - 1 Week PCP Follow-up - 2 Weeks New Medications: Aspirin (Aspirin Low Dose) 81 Mg Chew 81 MG CHEW DAILY for Prevent Blood Clot for 30 Days, #30 TAB 0 Refills Enoxaparin Inj (Lovenox Inj) 30 Mg/0.3 Ml Syr 30 MG SQ DAILY for Blood Clot Prevention, #7 SYRINGE 0 Refills Hydrocodone-Acetaminophen ([place]) 7.5-325 mg Tab 1-2 TAB PO Q6H PRN for PAIN, #90 TAB 0 Refills Chris Lugo MD Jun 25, 2017 11:37
--- NOTE | 2017-06-25 12:11 | HHI.FF ---
Face to Face Verification Diagnosis: (1) Recurrent dislocation, right hip (2) Hip dislocation, right Physical Therapy Order: Evaluate and Treat Occupational Therapy Order: Evaluate and Treat Home Health Nursing Order: Wound care and dressing changes Instructions: Wound evaluation and dressing changes I have seen patient Alber Duncan on 06/25/17. My clinical findings support the need for the requested home health care services because: Ltd mobility - disease progression Deconditioned w/ increased weakness Limited ability to care for self High risk of falls Infection w/ risk of complications I certify that my clinical findings support that this patient is homebound because: Post-op weakness Unsteady gait/balance Unsafe to leave home unassisted Unable to use public transportation Chris Lugo MD Jun 25, 2017 11:45
[2017-06-25] MEDS: ACETAMINOPHEN/HYDROcodone 325 MG/10 MG TAB PO PRN (12:24)
--- NOTE | 2017-06-25 13:21 | PD.ORT.PN ---
Subjective Post Op Day #: 2 Subjective Remarks pain under control. ready to go home. Objective Vitals Vital Signs Date Time Temp Pulse Resp B/P (MAP) Pulse Ox O2 Delivery O2 Flow Rate FiO2 06/25/17 12:00 96.8 78 18 136/82 (100) 98 06/25/17 08:00 96.5 77 18 142/79 (100) 98 06/25/17 04:22 97.6 72 18 134/62 (86) 96 06/25/17 00:49 98.2 71 18 142/73 (96) 96 06/24/17 20:50 98.3 72 18 117/61 (79) 96 06/24/17 16:00 98.4 86 18 141/67 (91) 98 I/O 06/24/17 06/24/17 06/24/17 06/25/17 06/25/17 06/25/17 07:00 15:00 23:00 07:00 15:00 23:00 Intake Total 240 ml 960 ml 480 ml 240 ml Output Total 550 ml 900 ml 1000 ml Balance -310 ml 960 ml -420 ml -760 ml Intake Oral 240 ml 960 ml 480 ml 240 ml Output Urine Total 550 ml 900 ml 1000 ml # Voids 4 # Bowel Movements 0 0 0 0 Result Diagram: 06/25/17 0738 06/24/17 0930 Objective Remarks in chair, nad dressing c/d/i neg homans nvi Assessment & Plan Ortho Post Op Day #: 2 Problem List: Assessment and Plan s/p Open Reduction R RIC POD1 hx of R RIC at [facility] wbat - posterior hip precautions must have wedge or knee immobilizer while in bed daily dressing changes lovenox d/c planning home - cleared by ortho f/up dr. de la paz 2 weeks Alexys Ellington Jun 25, 2017 13:21
[2017-06-25 13:24] VITALS: RESP 18
--- NOTE | 2017-06-26 11:11 | MP ---
cc: VINCENZO PUGH M.D. DATE OF SURGERY: 06/23/2017 PREOPERATIVE DIAGNOSIS Right total hip arthroplasty, irreducible posterior dislocation. POSTOPERATIVE DIAGNOSIS Right total hip arthroplasty, irreducible posterior dislocation. PROCEDURE Open reduction of right hip dislocation. SURGEON Dr. Vincenzo Pugh. PAINT FORMULATOR Vincenzo Ellington PA-C ANESTHESIA General. ESTIMATED BLOOD LOSS 100 cc. COMPLICATIONS None. JUSTIFICATION This patient is a 71-year-old male who has undergone previous revision right total hip arthroplasty two months ago at [facility] with Dr. Gillis. He was reported to have a dislocation of his right hip and subsequent recurrent dislocation which is now irreducible. He was taken to [facility] Emergency Room. Multiple closed reduction attempts were tried under conscious sedation which were unsuccessful. The patient was counseled as to the risks, benefits and alternatives to the above-named proposed surgical procedure. He did wish to proceed with surgery. PROCEDURE IN DETAIL Written consent was obtained. The patient was identified by name, taken to the operating room and placed supine on the operating table. General anesthesia was administered as well as two grams of IV Ancef and one gram of IV vancomycin. The patient was carefully turned into a left lateral decubitus position. A lateral arm roll was placed. All bony prominences and pressure points were well-padded. The right hip and right lower extremity were prepped and draped using isopropyl alcohol, Hibiclens solution and ChloraPrep solution. After a timeout was performed a longitudinal incision was made over the posterolateral aspect of the right hip. The fascial layer was incised. The femoral head was noted to be incarcerated within soft tissue along the posterior superior portion of the gluteus muscle. The femoral head component was then released from the soft tissue entrapment. An open reduction was then performed. After reduction the hip was taken through a range of motion and noted to have good stability. The surgical wound was thoroughly irrigated with sterile saline pulse lavage antibiotic-impregnated solution. The fascia layer was closed with #1 Vicryl suture, the subcutaneous layer with 2-0 Vicryl suture and skin was closed with roman. Sterile dressing was applied. The patient tolerated the procedure well with no intraoperative complications noted. Vincenzo Ellington, physician per diem physical therapist assistant certified, was present during the entire procedure to include patient positioning and the procedure itself. The medical necessity of the physician per diem physical therapist assistant was indicated in this case due to the complexity of the procedure. He assisted with appropriate manipulation of the leg and also retraction of muscle, tendon, bone and neurovascular structures. He assisted with reduction maneuvers to obtain open reduction of the hip dislocation. MD NAVYA Hayes/CLAUDE /10:22 AM /10:50 AM
== END 2017-06-25 17:09 | disposition home or self-care (01) | DRG 482 ==
LOC: NEPC 08:21 → NEDA 17:07 → N06A 18:09
PROVIDERS: ADMIT Hospitalist; ATTEND Hospitalist
PROC: 0SS90ZZ Reposition Right Hip Joint, Open Approach (ICD-10-PCS; principal; 2017-06-23 09:16)
DX: T84.020A Dislocation of internal right hip prosthesis, initial encounter (principal); I10 Essential (primary) hypertension; E11.9 Type 2 diabetes mellitus without complications; E78.5 Hyperlipidemia, unspecified; G25.0 Essential tremor; M16.0 Bilateral primary osteoarthritis of hip; Z96.643 Presence of artificial hip joint, bilateral; Z79.4 Long term (current) use of insulin; X50.1XXA Overexertion from prolonged static or awkward postures, initial encounter; Y92.009 Unspecified place in unspecified non-institutional (private) residence as the place of occurrence of the external cause
CPT/HCPCS: 27250; 73501; 73502; 73700; 80048; 80053; 82948; 85025; 85027; 85610; 85730; 86850; 86900; 86901; 86920; 93005; 94150; 96361; 96374; 96375; 96376; 99152; 99153; J0690; J1170; J1200; J1580; J1650; J1815; J2250; J2270; J2370; J2405; J2710; J3010; J3370; J7030; J7050; L1830

== ENCOUNTER 2017-09-11 08:25 | Emergency (ER) | payer MEDICARE, OTHER ==
[~2017-09-11] VITALS: Ht 180.3 cm; Wt 90.0 kg
[~2017-09-11 08:25] MED LIST changes: +ASPI81CH6 CHEW; +ENOX30P SQ; +HYDR-3288 PO; -TYLE325T PO
[2017-09-11 08:30] VITALS: BP 158/75; PULSE 77; RESP 12; TEMP 97.9; O2SAT 98
[2017-09-11] MEDS ORDERED: GLIP5TAB8 PO (08:35)
[2017-09-11] MEDS ORDERED: SIMV5TAB3 PO (08:36)
[2017-09-11] MEDS ORDERED: GABA100C4 PO (08:36)
[2017-09-11] MEDS ORDERED: LISI2.5T3 PO (08:36)
[2017-09-11] MEDS ORDERED: PRIM50TA5 PO (08:36)
[2017-09-11] MEDS ORDERED: DICL1CAP3 PO (08:36)
[2017-09-11] MEDS ORDERED: METF1000 PO (08:37)
[2017-09-11] MEDS ORDERED: PROPOFOL 200 MG/20 ML AMP IV ONE (09:00)
[2017-09-11] MEDS ORDERED: HYDROmorphone HCL PF 1 MG/ML VIAL IVS ONE (09:00)
--- NOTE | 2017-09-11 09:49 | RADRPT ---
EXAM DATE/TIME: 09/11/2017 09:09 [facility] COMPARISON: No previous studies available for comparison. INDICATIONS : Right hip pain after hip popped out while putting on sock this morning. MEDICAL HISTORY : Hypertension. Diabetes mellitus type II. SURGICAL HISTORY : Bilateral hip replacements. ENCOUNTER: Initial ACUITY: 1 day PAIN SCORE: 9/10 LOCATION: Right anterior hip. FINDINGS: Anterior superior dislocation total hip on the right without fracture.. Total hip on the left anatom ic alignment. CONCLUSION: Anterosuperior dislocation on right. Dain Khan MD FACR on September 11, 2017 at 9:46 Board Certified Radiologist. This report was verified electronically.
[2017-09-11 11:40] VITALS: O2SAT 100
--- NOTE | 2017-09-11 12:10 | RADRPT ---
EXAM DATE/TIME: 09/11/2017 11:28 [facility] COMPARISON: HIP RIGHT AP ONLY WO AP PELVIS, June 22, 2017, 10:21. INDICATIONS : Post reduction, right hip. MEDICAL HISTORY : Hypertension. Diabetes mellitus type II. SURGICAL HISTORY : Bilateral hip replacements. ENCOUNTER: Initial ACUITY: 1 day PAIN SCORE: Non-responsive. LOCATION: Right hip FINDINGS: Continued anterior superior dislocation. Femoral component is trapped above the acetabular component . CONCLUSION: Dislocation as above Dain Khan MD FACR on September 11, 2017 at 12:07 Board Certified Radiologist. This report was verified electronically.
--- NOTE | 2017-09-11 12:14 | RADRPT ---
EXAM DATE/TIME: 09/11/2017 11:39 [facility] COMPARISON: HIP RIGHT (AP&LAT 2/3VWS) WO AP PELVIS, June 22, 2017, 9:21. HIP RIGHT AP ONLY WO AP PELVIS, pt2016, 10:21. HIP RIGHT AP ONLY WO AP PELVIS, September 11, 2017, 11:28. INDICATIONS : Post reduction, right hip. MEDICAL HISTORY : Hypertension. Diabetes mellitus type II. SURGICAL HISTORY : Bilateral total hip replacement ENCOUNTER: Subsequent ACUITY: 1 day PAIN SCORE: Non-responsive. LOCATION: Right hip FINDINGS: Single frontal view of the right hip demonstrates restored alignment of the femoral and acetabular co mponent. Displaced fractures of the greater and lesser trochanteric portions. The long femoral stem c omponent appears intact. CONCLUSION: 1. Status post reduction of right hip prosthesis. dislocation of the 2. Persistent displaced fragments about the right greater and lesser trochanter, similar in configura tion to June 2017. Zack Carter MD on September 11, 2017 at 12:10 Board Certified Radiologist. This report was verified electronically.
--- NOTE | 2017-09-11 14:26 | PD ---
HPI Chief Complaint: Hip Injury Time Seen by Provider: 08:47 Travel History International Travel<30 days: No Contact w/Intl Traveler<30days: No Traveled to known affect area: No History of Present Illness HPI 72-year-old man, presents emergent department for right hip pain and deformity. States he's putting on his shoes when he felt a pop. He believes he dislocated the hip. His a history of bilateral hip replacements, most recent one was redone in June by an orthopedist in [place]. Is been dislocated several times since then. Complains of some paresthesias in the leg. History Past Medical History Narrative Medical Hyperlipidemia Hypertension Diabetes Tetanus Vaccination: < 5 Years Influenza Vaccination: No Social History Alcohol Use: No Tobacco Use: No Allergies-Medications (Allergen,Severity, Reaction): Coded Allergies: No Known Allergies (Unverified Adverse Reaction, Unknown, 09/11/17) Reported Meds & Prescriptions Reported Meds & Active Scripts Active Reported Metformin (Metformin HCl) 1,000 Mg Tab 1,000 Mg PO BIDPC Primidone 50 Mg Tab 50 Mg PO BID Simvastatin 5 Mg Tab 5 Mg PO DAILY Lisinopril 2.5 Mg Tab 2.5 Mg PO DAILY Gabapentin 100 Mg Cap 100 Mg PO BID Zorvolex (Diclofenac) 18 Mg Cap 18 Mg PO TID Glipizide 5 Mg Tab 5 Mg PO BIDAC Take 30 minutes before a meal Review of Systems Except as stated in HPI: all other systems reviewed are Neg Physical Exam Narrative GENERAL: 72-year-old man, no acute distress. SKIN: Focused skin assessment warm/dry. NECK: Trachea midline. No JVD. CARDIOVASCULAR: Regular rate and rhythm. No murmur appreciated. RESPIRATORY: No accessory muscle use. Clear to auscultation. Breath sounds equal bilaterally. GASTROINTESTINAL: Abdomen soft, non-tender, nondistended. Hepatic and splenic margins not palpable. MUSCULOSKELETAL: Right hips held a little bit externally Rotated, somewhat flexed. Good distal pulses. NEUROLOGICAL: Awake and alert. No obvious cranial nerve deficits. Motor grossly within normal limits. Normal speech. Data Data Last Documented VS Vital Signs Date Time Temp Pulse Resp B/P (MAP) Pulse Ox O2 Delivery O2 Flow Rate FiO2 09/11/17 11:40 100 Nasal Cannula 4.00 09/11/17 08:30 97.9 77 12 158/75 (102) Orders Orders Electrocardiogram (09/11/17 ) Hydromorphone Pf Inj (Dilaudid Pf Inj) (09/11/17 09:00) Propofol 200 Mg/20 Ml Inj (Diprivan 200 (09/11/17 09:00) Pelvis, Ap Only (Routine) (09/11/17 ) Hip, Ap Only Wo Ap Pelvis (09/11/17 ) Hip, Ap Only Wo Ap Pelvis (09/11/17 ) Immobilizer Knee 20 Inch (09/11/17 ) [facility] Medical Decision Making Medical Screen Exam Complete: Yes Emergency Medical Condition: Yes Differential Diagnosis Dislocation, fracture, contusion, other Narrative Course Medical decision making 72-year-old man with recurrent right hip dislocation. Required open reduction with Dr. An in June. Has an appointment with Dr. An coming up. Hip was reduced with some difficulty in the emergency department. Spoke with Dr. Hira Morris coupon redemption clerk for orthopedics who spoke with Dr. An. Dr. An apparently states that he told the patient to follow-up with his original orthopedic surgeon and [place]. Nonetheless, recommends standard treatment , knee immobilizer, precautions. Diagnosis Primary Impression: Hip dislocation, right Additional Instructions: Wear knee immobilizer at all times except when showering. Use precautions to prevent recurrent dislocation. Follow-up with Dr. Gillis, in [place] for further evaluation. Return to the emergency department for any new or worsening symptoms. Med/Other Pt SpecificInfo: No Change to Meds Disposition: 01 DISCHARGE HOME Condition: Stable Alber Cleveland MD Sep 11, 2017 14:26
--- NOTE | 2017-09-11 22:31 | EKG ---
Date Performed: 09/11/2017 Time Performed: 08:44:47 PTAGE: 72 years EKG: Sinus rhythm POSSIBLE RIGHT VENTRICULAR CONDUCTION DELAY BORDERLINE ECG PREVIOUS TRACING : 06/22/2017 17.04 Compared to prior tracing no significant change DOCTOR: Pavel Sullivan Interpretating Date/Time 09/11/2017 22:29:25
== END 2017-09-11 18:11 | disposition home or self-care (01) ==
LOC: NEPC 08:25
DX: M24.451 Recurrent dislocation, right hip (principal); R20.2 Paresthesia of skin; E78.5 Hyperlipidemia, unspecified; I10 Essential (primary) hypertension; E11.9 Type 2 diabetes mellitus without complications; Z96.643 Presence of artificial hip joint, bilateral; Z79.899 Other long term (current) drug therapy
CPT/HCPCS: 27250; 72170; 73501; 93005; 99152; 99153; 99285; J1170; L1830

== ENCOUNTER 2017-10-12 16:13 | Emergency (ER) | payer OTHER ==
[~2017-10-12] VITALS: Ht 180.3 cm; Wt 90.0 kg
[~2017-10-12 16:13] MED LIST changes: -ASPI81CH6 CHEW; +DICL1CAP3 PO; -ENOX30P SQ; +GABA100C4 PO; +GLIP5TAB8 PO; -HYDR-3288 PO; -LANTUS2P SQ; +LISI2.5T3 PO; +METF1000 PO; -METF500T PO; -PRAV40TA2 PO; +PRIM50TA5 PO; +SIMV5TAB3 PO
[2017-10-12 16:19] VITALS: BP 203/86; PULSE 88; RESP 16; TEMP 98.6; O2SAT 98
[2017-10-12] MEDS ORDERED: LANTUS2P SQ (17:34)
--- NOTE | 2017-10-12 17:41 | PD ---
HPI Chief Complaint: Hip Injury Time Seen by Provider: 17:34 Travel History International Travel<30 days: No Contact w/Intl Traveler<30days: No Traveled to known affect area: No History of Present Illness HPI 72-year-old male with history of bilateral hip replacements, frequent dislocation of right hip presents for evaluation today of the same. He reports that 3 hours prior to arrival he was bent over to tie his shoe when he felt his right hip become painful and deformed. He has been unable to handle in his right leg since then. Pain is aching, constant, worse with movement. Feels like previous hip dislocations. He follows with orthopedist Dr. Gillis in [place]. No other complaints. [facility] Past Medical History Cardiovascular Problems: Yes High Cholesterol: Yes Diabetes: Yes Diminished Hearing: No Hypertension: Yes Past Surgical History Genitourinary Surgery: No Pacemaker: No Other Surgery: Yes Social History Alcohol Use: No Tobacco Use: No Substance Use: No Allergies-Medications (Allergen,Severity, Reaction): Coded Allergies: No Known Allergies (Verified Adverse Reaction, Unknown, 10/12/17) Reported Meds & Prescriptions Reported Meds & Active Scripts Active Reported Lantus Inj (Insulin Glargine) 1,000 Unit/10 Ml Vial 25 Units SQ HS Metformin (Metformin HCl) 1,000 Mg Tab 1,000 Mg PO BIDPC Primidone 50 Mg Tab 50 Mg PO BID Simvastatin 5 Mg Tab 5 Mg PO DAILY Lisinopril 2.5 Mg Tab 2.5 Mg PO DAILY Gabapentin 100 Mg Cap 100 Mg PO BID Zorvolex (Diclofenac) 18 Mg Cap 18 Mg PO TID Glipizide 5 Mg Tab 5 Mg PO BIDAC Take 30 minutes before a meal Review of Systems Except as stated in HPI: all other systems reviewed are Neg Physical Exam Narrative GENERAL: Well-nourished male in no acute distress SKIN: Warm and dry. HEAD: Atraumatic. Normocephalic. EYES: Pupils equal and round. No scleral icterus. No injection or drainage. ENT: No nasal bleeding or discharge. Mucous membranes pink and moist. NECK: Trachea midline. No JVD. CARDIOVASCULAR: Regular rate and rhythm. No murmur appreciated. RESPIRATORY: No accessory muscle use. Clear to auscultation. Breath sounds equal bilaterally. GASTROINTESTINAL: Abdomen soft, non-tender, nondistended. Hepatic and splenic margins not palpable. MUSCULOSKELETAL: Right leg is flexed and externally rotated. Tender to palpation right hip. 2+ dorsalis pedis pulse. Distal sensation is preserved. NEUROLOGICAL: Awake and alert. No obvious cranial nerve deficits. Motor grossly within normal limits. Normal speech. PSYCHIATRIC: Appropriate mood and affect; insight and judgment normal. Data Data Last Documented VS Vital Signs Date Time Temp Pulse Resp B/P (MAP) Pulse Ox O2 Delivery O2 Flow Rate FiO2 10/12/17 18:47 17 10/12/17 17:30 86 98 Room Air 10/12/17 16:19 98.6 203/86 (125) Orders Orders Hip, Uni(Ap&Lat) W Ap Pelvis (10/12/17 ) Etomidate Inj (Amidate Inj) (10/12/17 17:45) Vascular Access Team Consult/P PRN (10/12/17 18:04) Vascular Poc Ultrasound (10/12/17 ) Morphine Inj (Morphine Inj) (10/12/17 18:15) Splint Or Brace Apply/Monitor (10/12/17 18:34) Hip, Ap Only Wo Ap Pelvis (10/12/17 ) Ed Discharge Order (10/12/17 19:29) MDM Medical Decision Making Medical Screen Exam Complete: Yes Emergency Medical Condition: Yes Medical Record Reviewed: Yes Differential Diagnosis Hip dislocation, fracture, bursitis Narrative Course X-ray imaging confirms dislocation of the right hip. After consent was obtained , the hip was reduced. Postreduction x-ray reveals normal anatomic alignment. The patient was placed in a knee immobilizer. He plans on following up swiftly with his orthopedist Dr. Gillis. Procedures Procedure Narrative Right hip dislocation reduction: After sedation was achieved, the right hip was reduced utilizing the "Captain Mariusz" technique. Postreduction the patient had normal distal sensation, distal pulses intact. Patient tolerated procedure well. Diagnosis Primary Impression: Hip dislocation, right Additional Instructions: Follow-up with your orthopedist. Knee immobilizer. Return for any emergent medical conditions. Med/Other Pt SpecificInfo: Orthopedic Instructions Disposition: 01 DISCHARGE HOME Condition: Stable Kelechi Sheldon Oct 12, 2017 17:41
--- NOTE | 2017-10-12 17:44 | RADRPT ---
EXAM DATE/TIME: 10/12/2017 17:10 [facility] COMPARISON: HIP RIGHT (AP&LAT 2/3VWS) W AP PELVIS, June 23, 2017, 10:50. INDICATIONS : Dislocation. MEDICAL HISTORY : Hypertension. Diabetes mellitus type II. SURGICAL HISTORY : Bilateral total hip replacement ENCOUNTER: Initial ACUITY: 1 day PAIN SCORE: 8/10 LOCATION: Right Hip. FINDINGS: Superior dislocation right hip arthroplasty without fracture. Left hemipelvis intact. Alignment ling tomic about the left arthroplasty. . CONCLUSION: Dislocation right total arthroplasty without fracture.. Dain Khan MD FACR on October 12, 2017 at 17:41 Board Certified Radiologist. This report was verified electronically.
[2017-10-12] MEDS ORDERED: ETOMIDATE 20 MG/10 ML VIAL IV PUSH ONE (17:45)
[2017-10-12] MEDS ORDERED: MORPHINE SULFATE 4 MG/ML INJ IV PUSH ONE (17:45)
[2017-10-12] MEDS ORDERED: MORPHINE SULFATE 2 MG/ML INJ IV PUSH ONE (18:15)
[2017-10-12 18:47] VITALS: RESP 17
--- NOTE | 2017-10-12 18:54 | PD ---
Physical Exam Narrative I was asked to help my clinical lab assistant with right hip dislocation reduction. Data Data Last Documented VS Vital Signs Date Time Temp Pulse Resp B/P (MAP) Pulse Ox O2 Delivery O2 Flow Rate FiO2 10/12/17 17:30 86 18 98 Room Air 10/12/17 16:19 98.6 203/86 (125) Orders Orders Hip, Uni(Ap&Lat) W Ap Pelvis (10/12/17 ) Etomidate Inj (Amidate Inj) (10/12/17 17:45) Vascular Access Team Consult/P PRN (10/12/17 18:04) Vascular Poc Ultrasound (10/12/17 ) Morphine Inj (Morphine Inj) (10/12/17 18:15) Splint Or Brace Apply/Monitor (10/12/17 18:34) Hip, Ap Only Wo Ap Pelvis (10/12/17 ) MDM Supervised Visit with LILIANA: Yes Procedures Procedure Narrative Conscious sedation procedure: Patient was connected to director of cardiac rehabilitation, pulse oximeter monitor and O2. Etomidate 10 mg IV given. Patient was adequately sedated. Traction was applied to right leg with successful reduction of right hip dislocation. Patient recovered without any problem. Candelario Brown MD Oct 12, 2017 18:54
--- NOTE | 2017-10-12 19:25 | RADRPT ---
EXAM DATE/TIME: 10/12/2017 18:47 [facility] COMPARISON: No previous studies available for comparison. INDICATIONS : Post reduction, right hip. MEDICAL HISTORY : None. SURGICAL HISTORY : Right total hip ENCOUNTER: Initial ACUITY: 1 day PAIN SCORE: Non-responsive. LOCATION: Right hip FINDINGS: View of the right hip was obtained. Previous dislocation of the prosthesis has been reduced. CONCLUSION: 1. Postoperative right total hip replacement. No current dislocation. Adam Schwartz MD on October 12, 2017 at 19:22 Board Certified Radiologist. This report was verified electronically.
== END 2017-10-12 19:59 | disposition home or self-care (01) ==
LOC: NEDAMB 16:13 → NEPE 19:59
DX: T84.020A Dislocation of internal right hip prosthesis, initial encounter (principal); E11.9 Type 2 diabetes mellitus without complications; E78.00 Pure hypercholesterolemia, unspecified; I10 Essential (primary) hypertension; X50.9XXA Other and unspecified overexertion or strenuous movements or postures, initial encounter; Y93.89 Activity, other specified; Z79.4 Long term (current) use of insulin
CPT/HCPCS: 27265; 73501; 73502; 96374; 99284; J2270; L1830

== ENCOUNTER 2017-11-05 14:07 | Emergency (ER) | payer OTHER ==
[~2017-11-05] VITALS: Ht 180.3 cm; Wt 85.9 kg
[~2017-11-05 14:07] MED LIST changes: +LANTUS2P SQ
[2017-11-05 14:12] VITALS: BP 143/76; PULSE 76; RESP 18; TEMP 98; O2SAT 99
--- NOTE | 2017-11-05 15:59 | PD ---
HPI Chief Complaint: Skin Problem Time Seen by Provider: 15:33 Travel History International Travel<30 days: No Contact w/Intl Traveler<30days: No Traveled to known affect area: No History of Present Illness HPI This is a 72-year-old male who presents to the emergency department having had a hip replacement done 4 days ago at an outside hospital with bruising from his wound that started today and has been constant, moderate severity with no lightheadedness or dizziness. He was seen by his primary care physician who is unable to assist him but placed a pressure dressing. The bleeding has since subsided. PFSH Past Medical History Cardiovascular Problems: Yes High Cholesterol: Yes Diabetes: Yes Patient Takes Glucophage: Yes Diminished Hearing: No Hypertension: Yes Past Surgical History Genitourinary Surgery: No Pacemaker: No Other Surgery: Yes Social History Alcohol Use: No Tobacco Use: No Substance Use: No Allergies-Medications (Allergen,Severity, Reaction): Coded Allergies: No Known Allergies (Verified Adverse Reaction, Unknown, 10/12/17) Reported Meds & Prescriptions Reported Meds & Active Scripts Active Reported Lantus Inj (Insulin Glargine) 1,000 Unit/10 Ml Vial 25 Units SQ HS Metformin (Metformin HCl) 1,000 Mg Tab 1,000 Mg PO BIDPC Primidone 50 Mg Tab 50 Mg PO BID Simvastatin 5 Mg Tab 5 Mg PO DAILY Lisinopril 2.5 Mg Tab 2.5 Mg PO DAILY Gabapentin 100 Mg Cap 100 Mg PO BID Zorvolex (Diclofenac) 18 Mg Cap 18 Mg PO TID Glipizide 5 Mg Tab 5 Mg PO BIDAC Take 30 minutes before a meal Review of Systems Except as stated in HPI: all other systems reviewed are Neg Physical Exam Narrative GENERAL:Well appearing, no acute distress SKIN: 1 cm area of dehiscence at the distal aspect of the left hip incision with some clotted blood HEAD: Atraumatic. Normocephalic. EYES: Pupils equal and round. No injection or drainage. ENT: Moist mucous membranes NECK: Trachea midline. CARDIOVASCULAR: Regular rate and rhythm. No murmur appreciated. RESPIRATORY: Clear to auscultation. Breath sounds equal bilaterally. GASTROINTESTINAL: Abdomen soft, non-tender, nondistended. MUSCULOSKELETAL: No obvious deformities. NEUROLOGICAL: Awake and alert. No obvious cranial nerve deficits. Moving all extremities. PSYCHIATRIC: Appropriate mood and affect; insight and judgment normal. Data Data Last Documented VS Vital Signs Date Time Temp Pulse Resp B/P (MAP) Pulse Ox O2 Delivery O2 Flow Rate FiO2 11/05/17 14:12 98.0 76 18 143/76 (98) 99 Room Air MDM Medical Decision Making Medical Screen Exam Complete: Yes Emergency Medical Condition: Yes Differential Diagnosis Hematoma, dehiscence, infection Narrative Course This is a 72-year-old male who presents to the emergency department having had a hip revision this week with bleeding from his wound. He has a small area of dehiscence. I think he would benefit from closure of the skin to prevent further bleeding. Closure was done by physician land surveyor assistant. Patient will be discharged home to follow-up with his surgeon. Diagnosis Primary Impression: Bleeding Patient Instructions: General Instructions Additional Instructions: If you develop further bleeding, lightheadedness, dizziness, fever or redness around your wound return to the emergency room. Follow-up with your surgeon as an outpatient. Med/Other Pt SpecificInfo: No Change to Meds Disposition: 01 DISCHARGE HOME Condition: Stable Shannon Bullard MD Nov 05, 2017 15:59
--- NOTE | 2017-11-05 16:17 | PD ---
Physical Exam Date Seen by Provider: Nov 05, 2017 Time Seen by Provider: 16:15 Narrative I was asked by Dr. Bullard to see this patient for a wound dehiscence from recent hip surgery 4 days prior to this visit. She requested I placed a suture in the wound. Please see my procedure note Data Data Last Documented VS Vital Signs Date Time Temp Pulse Resp B/P (MAP) Pulse Ox O2 Delivery O2 Flow Rate FiO2 11/05/17 14:12 98.0 76 18 143/76 (98) 99 Room Air Orders Orders Ed Discharge Order (11/05/17 15:59) MDM Medical Record Reviewed: Yes Supervised Visit with LILIANA: Yes Procedures Procedure Narrative LACERATION LOCATION: Right hip lower incision site LENGTH: 0.5 cm dehiscence NUMBER OF STITCHES/KISHORE: One vertical mattress REPAIR: The area of the laceration was prepped with Betadine and sterilely draped. The wound was copiously irrigated and explored without evidence of foreign body, tendon injury or neurovascular injury. The wound was closed using 5-0 Vicryl. This was a single layer repair. A sterile dressing was applied. The patient was advised to keep the dressing clean and dry. Patient tolerated the procedure well. Diagnosis Primary Impression: Bleeding Patient Instructions: General Instructions, Wound Dehiscence (ED) Departure Forms: Tests/Procedures Additional Instruction: If you develop further bleeding, lightheadedness, dizziness, fever or redness around your wound return to the emergency room. Follow-up with your surgeon as an outpatient. Disposition: 01 DISCHARGE HOME Condition: Stable Oscar Garcia Nov 05, 2017 16:17
== END 2017-11-05 16:33 | disposition home or self-care (01) ==
LOC: NEPD 14:07
DX: R58 Hemorrhage, not elsewhere classified (principal); E78.00 Pure hypercholesterolemia, unspecified; E11.9 Type 2 diabetes mellitus without complications; I10 Essential (primary) hypertension; Z79.4 Long term (current) use of insulin
CPT/HCPCS: 12001

== ENCOUNTER 2017-12-02 13:45 | Emergency (ER) | payer OTHER ==
[~2017-12-02] VITALS: Ht 180.3 cm; Wt 88.0 kg
[2017-12-02 13:46] VITALS: BP 194/91; PULSE 91; RESP 18; TEMP 98.6; O2SAT 99
[2017-12-02] MEDS ORDERED: GABA300C5 PO (14:25)
[2017-12-02] MEDS ORDERED: PRIM50TA5 PO (14:25)
[2017-12-02] MEDS ORDERED: GABA600T PO (14:25)
--- NOTE | 2017-12-02 15:02 | PD ---
HPI Chief Complaint: Complaint Time Seen by Provider: 14:28 Travel History International Travel<30 days: No Contact w/Intl Traveler<30days: No Traveled to known affect area: No History of Present Illness HPI 72-year-old male presents to the emergency department with 2 complaints. His first complaint is left lateral ankle pain that shoots up his leg and on his foot that has been on and off for the past 1 year with worsening over the past 4 days. Denies injury. Has history of neuropathy and his neurologist gave him gabapentin but has not helped his pain. The pain comes spontaneously. No known aggravating factors. No known relieving factors. His psychomotor complaint is difficulty getting his urine to flow 1 week. Says that when he does get it to flow it stops and trickles and then when it stopped completely he feels like he still has to urinate. Reports dysuria. Denies hematuria. Denies fever, vomiting, abdominal pain. Denies known problem with prostate. Has not taken any medications or training she wants to alleviate these symptoms. No known relieving factors. Primary care provider is Kerline yepez. No known allergies. History of neuropathy, diabetes mellitus, hypertension. Has no other medical complaints. With out of 5 factors or associated signs and symptoms. PFSH Past Medical History Cardiovascular Problems: Yes High Cholesterol: Yes Diabetes: Yes Patient Takes Glucophage: No Diminished Hearing: No Hypertension: Yes ?: Not Past Surgical History Genitourinary Surgery: No Pacemaker: No Other Surgery: Yes Social History Alcohol Use: No Tobacco Use: No Substance Use: No Allergies-Medications (Allergen,Severity, Reaction): Coded Allergies: No Known Allergies (Verified Adverse Reaction, Unknown, 12/02/17) Reported Meds & Prescriptions Reported Meds & Active Scripts Active Flomax (Tamsulosin HCl) 0.4 Mg Cap 0.4 Mg PO HS Reported Primidone 50 Mg Tab 350 Mg PO BID Gabapentin 600 Mg Tab 600 Mg PO BID Gabapentin 300 Mg Cap 300 Mg PO AC LUNCH Lantus Inj (Insulin Glargine) 1,000 Unit/10 Ml Vial 25 Units SQ HS Metformin (Metformin HCl) 1,000 Mg Tab 1,000 Mg PO BIDPC Simvastatin 5 Mg Tab 5 Mg PO DAILY Lisinopril 2.5 Mg Tab 2.5 Mg PO DAILY Glipizide 5 Mg Tab 5 Mg PO BIDAC Take 30 minutes before a meal Review of Systems Except as stated in HPI: all other systems reviewed are Neg Physical Exam Narrative GENERAL: Well-nourished, well-developed male patient, in no acute distress SKIN: Warm and dry. No rash. HEAD: Atraumatic. Normocephalic. EYES: Pupils equal and round. No scleral icterus. No injection or drainage. ENT: Mucosa pink and moist. NECK: Trachea midline. CARDIOVASCULAR: Regular rate. RESPIRATORY: No accessory muscle use GASTROINTESTINAL: Abdomen soft, non-tender, nondistended. Hepatic and splenic margins not palpable. Bowel sounds are active 4 quadrants. Bladder with tenderness on palpation; nondistended. MUSCULOSKELETAL: Left lateral ankle with tenderness on palpation; without erythema, edema, ecchymosis; 2+ pedal; no obvious deformity; sensory intact; toes pink and warm. No obvious deformities. No clubbing. No cyanosis. No edema. NEUROLOGICAL: Awake and alert. Oriented 3. No obvious cranial nerve deficits. Motor grossly within normal limits. Normal speech. Moves all extremities. 5/5 strength to all extremities. PSYCHIATRIC: Appropriate mood and affect; insight and judgment normal. Data Data Last Documented VS Vital Signs Date Time Temp Pulse Resp B/P (MAP) Pulse Ox O2 Delivery O2 Flow Rate FiO2 12/02/17 13:46 98.6 91 18 194/91 (125) 99 Orders Orders Urinalysis - C+S If Indicated (12/02/17 14:46) Ankle, Complete ([id number]) (12/02/17 14:46) Labs Laboratory Tests Test 12/02/17 15:00 Urine Color YELLOW Urine Turbidity CLEAR Urine pH 7.0 Urine Specific [place] 1.012 Urine Protein NEG mg/dL Urine Glucose (UA) 70 mg/dL Urine Ketones 10 mg/dL Urine Occult Blood NEG Urine Nitrite NEG Urine Bilirubin NEG Urine Urobilinogen LESS THAN 2.0 MG/DL Urine Leukocyte Esterase NEG Urine RBC 1 /hpf Urine WBC LESS THAN 1 /hpf Urine Squamous Epithelial Cells <1 /hpf Urine Mucus FEW /lpf Microscopic Urinalysis Comment CULT NOT INDICATED MDM Medical Decision Making Medical Screen Exam Complete: Yes Emergency Medical Condition: Yes Medical Record Reviewed: Yes Differential Diagnosis UTI, BPH, ankle pain, ankle fracture, neuropathy Narrative Course 72-year-old male with difficulty urinating and left ankle pain. Denies injury. Urinalysis ordered. Left ankle x-ray ordered. 1607: Urinalysis without signs of infection. 1658: Left ankle x-ray with no acute findings. Instructed patient to follow-up with podiatry. Instructed patient to follow-up with urology. Flomax prescribed for home. Instructed patient to follow up with primary care provider. Patient verbalizes understanding and agreement with treatment plan. Patient is medically cleared and stable for discharge. Discussed reasons to return to the emergency department. Patient agrees with treatment plan. The patients vital signs are stable and the patient is stable for outpatient follow- up and treatment. Patient discharged home, stable and in no acute distress. Diagnosis Primary Impression: Difficulty urinating Additional Impression: Left ankle pain Qualified Codes: M25.572 - Pain in left ankle and joints of left foot Referrals: Primary Care Physician Urologist Patient Instructions: Dysuria (ED), General Instructions Additional Instructions: Flomax as prescribed Follow-up with urologist Follow-up with primary care provider Return to the emergency department immediately if worsening of symptoms Med/Other Pt SpecificInfo: Prescription(s) given Scripts Tamsulosin (Flomax) 0.4 Mg Cap 0.4 MG PO HS for Manage Prostate Problems, #14 CAP 0 Refills Prov: Caterina Orr 12/02/17 Disposition: 01 DISCHARGE HOME Condition: Stable Caterina Orr Dec 02, 2017 15:02
[2017-12-02 15:32] LABS: BILIRUBIN, URINE NEG (NEG); BLOOD, URINE NEG (NEG); GLUCOSE,URINE 70 mg/dL (NEG); KETONE, URINE 10 mg/dL (NEG); MUCUS URINE FEW /lpf (OCC); NITRITE,URINE NEG (NEG); SQUAMOUS EPITHELIAL CELL URINE <1 /hpf (0-5); URINE COLOR YELLOW (YELLW/STRAW); URINE LEUKOCYTE ESTERASE NEG (NEG)
[2017-12-02] MEDS ORDERED: TAMS5CAP PO (16:11)
--- NOTE | 2017-12-02 16:12 | RADRPT ---
EXAM DATE/TIME: 12/02/2017 15:53 [facility] COMPARISON: No previous studies available for comparison. INDICATIONS : Pain with no known injury. MEDICAL HISTORY : Diabetes. SURGICAL HISTORY : None. ENCOUNTER: Initial ACUITY: 1 day PAIN SCORE: 10/10 LOCATION: Left Ankle. FINDINGS: Three view exam was performed of the left ankle. The bony structures are in normal alignment. No ev idence of fracture, dislocation, or soft tissue swelling. The ankle mortise is intact. No radiopaqu e foreign bodies are seen. Bony mineralization is normal. CONCLUSION: 1. No acute findings. Adam Schwartz MD on December 02, 2017 at 16:10 Board Certified Radiologist. This report was verified electronically.
== END 2017-12-02 17:42 | disposition home or self-care (01) ==
LOC: NEPD 13:45
DX: M25.572 Pain in left ankle and joints of left foot (principal); R30.0 Dysuria; R39.198 Other difficulties with micturition; G62.9 Polyneuropathy, unspecified; E11.9 Type 2 diabetes mellitus without complications; E78.00 Pure hypercholesterolemia, unspecified; I10 Essential (primary) hypertension
CPT/HCPCS: 73610; 81001; 99284